=== PATIENT | female | born 1945 | race Caucasian/White ===

== ENCOUNTER 2018-03-18 09:53 | Inpatient (IN) | payer BC ==
[2018-03-15 09:12] VITALS: BMI 31.9
[2018-03-18] MEDS ORDERED: ROPIVACAINE HCL 0.5% 30ML VIAL ONE ×2 (12:17→12:18)
--- NOTE | 2018-03-18 12:40 | OP ---
Operative Note - Note: Operative Date: 03/18/18 Pre-Operative Diagnosis: 1. L4-L5, L5-S1 intervertebral disc disorder with associated lower extremity radiculopathy. 2. L4-L5, L5-S1 spinal stenosis with neurogenic claudication. 3. L4-L5, L5-S1 segmental instability. Operation: 1. L4, L5, S1 laminectomies. 2. L3 laminotomy. 3. L4-L5, L5-S1 discectomy. 4. L4-L5, L5-S1 PLIF. 5. Insertion biomechanical devices L4-L5, L5 -S1. 6. L4-L5, L5-S1 posterior arthrodesis. 7. L4-L5, L5-S1 posterior instrumentation. 8. Bone autograft. 9. Bone allograft. 10. Bone marrow aspiration. 11. Stem cell autograft. 12. Complex wound closure (10cm). Post-Operative Diagnosis: Same as Pre-op Surgeon: Aydin Lara Maintenance Leader: Victor Hugo Lara Anesthesiologist/T RAIL TURNER: Bobby Fonseca Anesthesia: General Specimens Removed: L4-L5, L5-S1 discs Estimated Blood Loss (mls): 550 Blood Volume Replaced (mls): 175 (Keisha Saver) Fluid Volume Replaced (mls): 2,000 (Crystalloid) Operative Report Dictated: Yes
[2018-03-18] MEDS ORDERED: MIDAZOLAM HCL 2 MG/2 ML SINGLE DOSE VIAL ONE ×3 (13:01→13:50)
[2018-03-18] MEDS ORDERED: BENZOIN TINCTURE SWABSTICK TP ONE (13:32)
[2018-03-18] MEDS ORDERED: HEPARIN NA (PORCINE) 5,000 UNITS/ML 1ML VIAL ONE (13:32)
[2018-03-18] MEDS ORDERED: THROMBIN (BOVINE) 5,000 UNIT VIAL TP ONE ×2 (13:32→15:14)
[2018-03-18] MEDS ORDERED: PROPOFOL 20 ML ONE ×12 (13:49→16:43)
[2018-03-18] MEDS ORDERED: fentaNYL CITRATE 250 MCG/5 ML VIAL ONE (13:49)
[2018-03-18] MEDS ORDERED: SUCCINYLCHOLINE CHLORIDE 200 MG/10 ML VIAL ONE (13:51)
[2018-03-18] MEDS ORDERED: ROCURONIUM BROMIDE 50 MG/5 ML VIAL ONE (14:15)
[2018-03-18] MEDS ORDERED: ceFAZolin SODIUM 1 GM VIAL IVPB ONE ×3 (14:31→17:15)
[2018-03-18] MEDS ORDERED: VANCOMYCIN 1,000 MG VIAL (RESTRICTED TO ID ONLY) IVPB ONE (14:40)
[2018-03-18] MEDS ORDERED: TRANEXAMIC ACID 1000 MG/10 ML VIAL ONE (16:50)
[2018-03-18] MEDS ORDERED: ceFAZolin SODIUM 1 GM VIAL ONE ×2 (16:50)
[2018-03-18] MEDS ORDERED: VANCOMYCIN 1,000 MG VIAL (RESTRICTED TO ID ONLY) ONE (16:50)
[2018-03-18] MEDS ORDERED: ONDANSETRON 4 MG/2 ML VIAL IVPUSH PRN ×2 (17:17→19:23)
--- NOTE | 2018-03-18 17:17 | PN ---
Progress Note (short form) - Note Progress Note: 73F s/p L1, L2, L3, L4, L5, S1 laminectomies; L1-S1 posterior arthrodesis; L1- S1 posterior instrumentation POD #0. -Admit to ICU post-op. -Pain control: per anaesthesia team; recommend MACHINE HOOP MAKER HELPER; No NSAID's. -DVT PPx: - Mechanical only: MARCY's, SCD's. -Incentive spirometry q15min. -PT/OT/Rehab, OOB. -WBAT B/L LE. -q4h B/L LE NV checks. -Post-op antibiotics x 2 doses. -NPO until flatus. -f/u AM labs. -f/u drain output. -d/c Gaston catheter when patient ambulating comfortably. -Care per medical hospitalist team. -No bending, lifting more than 5lbs, or twisting x 6 months. -Discharge planning: f/u 03/29/2018 at [facility] [place] office; call for appointment; . -Will follow. Aydin Lara MD (Orthopaedic Surgery).
[2018-03-18] MEDS ORDERED: ALBUTEROL SO4 8 GM HFA INHALER IH PRN (17:30)
[2018-03-18] MEDS ORDERED: LACTATED RINGERS SOLUTION 1,000 ML IV SCH ×2 (17:30→19:30)
[2018-03-18] MEDS ORDERED: MECLIZINE HCL 12.5 MG TABLET PO PRN (17:30)
[2018-03-18] MEDS ORDERED: GLYCOPYRROLATE 0.2 MG/1 ML VIAL ONE ×3 (17:49→17:59)
[2018-03-18] MEDS ORDERED: NEOSTIGMINE METHYLSULFATE 0.5 MG/1 ML - 10 ML MDV ONE (17:49)
[2018-03-18] MEDS ORDERED: METOPROLOL TARTRATE 5 MG/5 ML VIAL ONE (17:49)
[2018-03-18] MEDS ORDERED: ATROPINE SO4 0.4 MG/1 ML VIAL ONE (18:03)
[2018-03-18] MEDS ORDERED: LIDOCAINE HCL/PF 2% SDV 5ML VIAL ONE (18:35)
[2018-03-18] MEDS ORDERED: HYDROmorphone *PCA* 10MG/50ML DISP.SYRIN PCA ONE (19:19)
[2018-03-18] MEDS ORDERED: ACETAMINOPHEN INJECTION 100 ML IVPB ONE (19:19)
[2018-03-18] MEDS ORDERED: ACETAMINOPHEN 1000 MG/100 ML VIAL (NON FORMULARY) IVPB ONE (19:23)
[2018-03-18] MEDS ORDERED: HYDROmorphone *PCA* 10MG/50ML DISP.SYRIN PCA SCH (19:30)
[2018-03-18] MEDS ORDERED: ONDANSETRON 4 MG/2 ML VIAL ONE (20:11)
[2018-03-18] MEDS ORDERED: PROMETHAZINE HCL 25 MG/1 ML VIAL ONE (21:28)
[2018-03-18] MEDS ORDERED: PROMETHAZINE HCL 25 MG/1 ML VIAL IVPUSH PRN (21:37)
[2018-03-18] MEDS: KETOROLAC TROMETHAMINE 30 MG/1 ML VIAL IVPUSH PRN (21:45)
[2018-03-18] MEDS ORDERED: KETOROLAC TROMETHAMINE 30 MG/1 ML VIAL ONE (21:48)
[2018-03-18] MEDS: MONTELUKAST NA 10 MG TABLET PO SCH (22:30)
--- NOTE | 2018-03-18 22:41 | CONSULT ---
Consultation: REQUESTING PROVIDER:Dr. Lara CONSULT REQUEST: We have been asked to medically evaluate this patient for ICU HISTORY OF PRESENT ILLNESS: 73 yo F with L4-L5, L5-S1 intervertebral disc disorder with associated lower extremity radiculopathy ,L4-L5, L5-S1 spinal stenosis with neurogenic claudication and L4-L5, L5-S1 segmental instability. She is POD #0 s/p L1, L2, L3, L4, L5, S1 laminectomies; L1-S1 posterior arthrodesis; L1-S1 posterior instrumentation. Tolerated the procedure well. No complaints. Minimal back pain. Denies CP,COLE, SOB, palpitations, abdominal pain, nausea or vomiting. PMHx: HTN, Vertigo, COPD PSHx: back surgery, CCY, bilateral carpel tunnel sx. Social: remote smoker quit >30 yrs ago, NO ETOH or drugs. Independent and lives with brother. Allergies: Sulfa (severe reaction) REVIEW OF SYSTEMS: CONSTITUTIONAL: Absent: fever, chills, diaphoresis, generalized weakness, malaise, loss of appetite, weight change HEENT: Absent: rhinorrhea, nasal congestion, throat pain, throat swelling, difficulty swallowing, mouth swelling, ear pain, eye pain, visual changes CARDIOVASCULAR: Absent: chest pain, syncope, palpitations, irregular heart rate, lightheadedness , peripheral edema RESPIRATORY: Absent: cough, shortness of breath, dyspnea with exertion, orthopnea, wheezing, stridor, hemoptysis GASTROINTESTINAL: Absent: abdominal pain, abdominal distension, nausea, vomiting, diarrhea, constipation, melena, hematochezia GENITOURINARY: Absent: dysuria, frequency, urgency, hesitancy, hematuria, flank pain, genital pain MUSCULOSKELETAL: back pain Absent: myalgia, arthralgia, joint swelling,, neck pain SKIN: Absent: rash, itching, pallor HEMATOLOGIC/IMMUNOLOGIC: Absent: easy bleeding, easy bruising, lymphadenopathy, frequent infections ENDOCRINE: Absent: unexplained weight gain, unexplained weight loss, heat intolerance, cold intolerance NEUROLOGIC: Absent: headache, focal weakness or paresthesias, dizziness, unsteady gait, seizure, mental status changes, bladder or bowel incontinence PSYCHIATRIC: Absent: anxiety, depression, suicidal or homicidal ideation, hallucinations. PHYSICAL EXAMINATION Vital Signs - 24 hr 03/18/18 03/18/18 03/18/18 11:21 11:22 19:30 Temperature 98.4 F Pulse Rate 93 H 79 Respiratory 20 20 Rate Blood Pressure 141/77 93/73 O2 Sat by Pulse 97 Oximetry (%) 03/18/18 03/18/18 03/18/18 19:45 20:00 20:15 Temperature Pulse Rate 75 76 80 Respiratory 18 13 14 Rate Blood Pressure 117/68 123/61 145/65 O2 Sat by Pulse 100 100 100 Oximetry (%) 03/18/18 03/18/18 03/18/18 20:30 20:45 21:00 Temperature Pulse Rate 75 83 80 Respiratory 10 12 14 Rate Blood Pressure 138/66 139/62 133/58 L O2 Sat by Pulse 100 96 Oximetry (%) 03/18/18 21:15 Temperature Pulse Rate 79 Respiratory 14 Rate Blood Pressure 143/80 O2 Sat by Pulse 100 Oximetry (%) GENERAL: awake and alert, NAD HEAD: NCAT EYES: PERRLA, EOMI, sclera anicteric, conjunctiva clear. No lid lag. EARS, NOSE, THROAT: Moist mucous membranes. NECK: supple without lymphadenopathy, JVD, or masses. LUNGS: CTAB. No wheezes, and no crackles. No accessory muscle use. HEART: RRR, normal S1 and S2 without murmur, rub or gallop. ABDOMEN: Soft, NTND,NABS,no guarding, no rebound, no masses. No hepatomegaly or splenomegaly. MUSCULOSKELETAL:decreased ROM 2/2 post op pain. Lumbar drain in place and patent , draining serosangionous fluid. LOWER EXTREMITIES: 2+ pulses, warm, well-perfused. No calf tenderness. No peripheral edema. NEUROLOGICAL: Cranial nerves II-XII intact. Normal speech. gait not observed. PSYCHIATRIC: Cooperative. Good eye contact. Appropriate mood and affect. Laboratory Results - last 24 hr 03/18/18 03/18/18 10:36 19:30 Blood Type O NEGATIVE O NEGATIVE Antibody Screen Negative Active Medications Generic Name Dose Route Start Last Admin Trade Name Freq PRN Reason Stop Dose Admin Acetaminophen 1,000 mg 03/19/18 18:15 Ofirmev Injection - IVPB 03/20/18 10:01 Q8H-IV FREDDY Albuterol Sulfate 1 puff 03/18/18 17:30 Ventolin Hfa Inhaler - IH PRN FREDDY Cefazolin Sodium/Dextrose 2 gm 03/19/18 01:00 Ancef 2 Gm Premixed Ivpb - IVPB 03/19/18 09:01 Q8H FREDDY Fentanyl 50 mcg 03/18/18 19:23 03/18/18 19:25 Sublimaze Injection - IVPUSH 50 mcg Q5M PRN Administration PAIN-PACU ORDER X 4 DOSES ONLY Fluticasone Propionate 2 spray 03/19/18 10:00 Flonase - NS DAILY FREDDY Hydrochlorothiazide 12.5 mg 03/19/18 10:00 Hctz - PO DAILY FREDDY Hydromorphone HCl 0 mg 03/18/18 19:30 03/18/18 19:45 Dilaudid [employer] - BUS ANALYST 03/25/18 19:23 10 mg BUS ANALYST FREDDY Administration Protocol Lactated Ringer's 1,000 mls @ 125 mls/hr 03/18/18 17:30 Lactated Ringers Solution IV ASDIR FREDDY Lactated Ringer's 1,000 mls @ 75 mls/hr 03/18/18 19:30 03/18/18 19:45 Lactated Ringers Solution IV 0 mls ASDIR FREDDY Administration Losartan Potassium 100 mg 03/19/18 10:00 Losartan Potassium PO DAILY FREDDY Meclizine HCl 12.5 mg 03/18/18 17:30 Antivert - PO PRN FREDDY Montelukast Sodium 10 mg 03/18/18 22:00 Singulair - PO HS FREDDY Non-Formulary Medication 10.5 mg 03/19/18 10:00 Bifidobacterium Infantis [Align] PO DAILY FREDDY Ondansetron HCl 4 mg 03/18/18 17:17 Zofran Injection IVPUSH Q6H PRN NAUSEA AND/OR VOMITING Ondansetron HCl 4 mg 03/18/18 19:23 Zofran Injection IVPUSH Q6H PRN NAUSEA AND/OR VOMITING Pantoprazole Sodium 40 mg 03/19/18 10:00 Protonix - PO DAILY FREDDY Promethazine HCl 12.5 mg 03/18/18 21:37 Phenergan Injection - IVPUSH Q6H PRN NAUSEA-FOR RESCUE AFTER 15 MIN ASSESSMENT/PLAN: 73F s/p L1, L2, L3, L4, L5, S1 laminectomies; L1-S1 posterior arthrodesis; L1- S1 posterior instrumentation POD #0. NEURO: * Dr. Lara orders appreciated. * Pain control: BUS ANALYST; No NSAID's. * PT/OT/Rehab, OOB. * WBAT B/L LE. * q4h B/L LE NV checks. * d/c Gaston catheter when patient ambulating comfortably. * No bending, lifting more than 5lbs, or twisting x 6 months. * Antivert for vertigo. CV: H/O HTN * Will continue Losartan/HCTZ * monitor BP PULM: * H/O COPD * Incentive spirometry q15min. * Supplemental O2 PRN * Maintain SpO2 >90% * BD TX PRN * Continue Singulair. ID: * Post-op antibiotics Cefazolin x 2 doses. GI: * NPO until flatus. * Will advance to sodium controlled diet. * Zofran and Promethazine for nausea PRN * Continue Probiotic. * PPI FEN: * LR @ 75ml/hr * f/u AM labs replete lytes PRN. * NPO until flatus PPx: * DVT-Mechanical only: MARCY's, SCD's. * GI- protonix 40mg daily. Dispo: We will continue to follow the patient in ICU. Thank you for this consultative opportunity. Visit type - Emergency Visit Emergency Visit: Yes ED Registration Date: 03/18/18 Care time: The patient presented to the Emergency Department on the above date and was hospitalized for further evaluation of their emergent condition. - New Patient This patient is new to me today: Yes Date on this admission: 03/18/18 - Critical Care Critical Care patient: Yes Total Critical Care Time (in minutes): 32 Critical Care Statement: The care of this patient involved high complexity decision making to prevent further life threatening deterioration of the patient 's condition and/or to evaluate & treat vital organ system(s) failure or risk of failure.
[2018-03-19] MEDS: ceFAZolin 2 GRAM PREMIX BAG IVPB SCH ×2 (01:07→09:57)
[2018-03-19 06:28] LABS: HEMOGLOBIN 10.3 GM/dL (10.7-15.3); MCH 29.9 pg (25.7-33.7); MCHC 34.4 g/dl (32.0-36.0); MEAN CELL VOLUME 86.8 fl (80-96); PLATELET COUNT 149 K/MM3 (134-434); RBC 3.45 M/mm3 (3.60-5.2); RDW 13.7 % (11.6-15.6)
--- NOTE | 2018-03-19 07:22 | PN ---
Physical Exam: SUBJECTIVE: Patient seen and examined at bedside this morning. She does not endorse acute complaints today. She has not yet passed flatus or bowel movement. Patient endorses that Dilaudid makes her feel nauseas, and is asking for Morphine instead. She denies subjective fevers, chills, shortness of breath , chest pain, palpitations, abdominal pain, nausea, vomiting. OBJECTIVE: Vital Signs Period Temp Pulse Resp BP Sys/Uribe Pulse Ox Last 24 Hr 97.5 F-98.4 F 75-96 6-21 93-145/38-80 96-100 GENERAL: The patient is awake, alert, and fully oriented, in no acute distress. HEAD: Normocephalic, atraumatic EYES: PERRL, extraocular movements intact, sclera anicteric, conjunctiva clear. ENT: Oropharynx clear without exudates, moist mucous membranes. NECK: Supple without lymphadenopathy LUNGS: Breath sounds equal, clear to auscultation bilaterally. No wheezes, no crackles, no accessory muscle use. HEART: Regular rate and rhythm, S1, S2 without murmur, rub or gallop. ABDOMEN: Obese. Soft, nontender, nondistended. Normoactive bowel sounds x4 quadrants, no guarding, no rebound tenderness. No hepatomegaly palpated or percussed. EXTREMITIES: 2+ radial, dorsalis pedis pulses bilaterally. Warm, well-perfused, no edema bilateral lower extremities. NEUROLOGICAL: Cranial nerves II through XII grossly intact. Normal speech. PSYCH: Normal mood, normal affect upon my encounter today SKIN: Warm, dry. Surgical site bandaged clean, dry. Wound drain noted draining sanguinous drainage. Laboratory Results - last 24 hr 03/18/18 03/18/18 03/19/18 10:36 19:30 05:30 WBC 11.0 H RBC 3.45 L Hgb 10.3 L Hct 30.0 L MCV 86.8 MCH 29.9 MCHC 34.4 RDW 13.7 Plt Count 149 MPV 8.0 Blood Type O NEGATIVE O NEGATIVE Antibody Screen Negative Active Medications Generic Name Dose Route Start Last Admin Trade Name Freq PRN Reason Stop Dose Admin Acetaminophen 1,000 mg 03/19/18 18:15 Ofirmev Injection - IVPB 03/20/18 10:01 Q8H-IV FREDDY Albuterol Sulfate 2 puff 03/18/18 17:30 Ventolin Hfa Inhaler - IH Q6H PRN SHORTNESS OF BREATH Cefazolin Sodium/Dextrose 2 gm 03/19/18 01:00 03/19/18 01:07 Ancef 2 Gm Premixed Ivpb - IVPB 03/19/18 09:01 2 gm Q8H FREDDY Administration Fluticasone Propionate 2 spray 03/19/18 10:00 Flonase - NS DAILY [facility] Hydrochlorothiazide 12.5 mg 03/19/18 10:00 Hctz - PO DAILY [facility] Hydromorphone HCl 0 mg 03/18/18 19:30 03/18/18 19:45 Dilaudid Test Carrier - UNDERCOVER OPERATOR 03/25/18 19:23 10 mg UNDERCOVER OPERATOR FREDDY Administration Protocol Lactated Ringer's 1,000 mls @ 75 mls/hr 03/18/18 19:30 03/18/18 19:45 Lactated Ringers Solution IV 300 mls ASDIR FREDDY Administration Ketorolac Tromethamine 30 mg 03/18/18 22:25 03/18/18 21:45 Toradol Injection - IVPUSH 30 mg Q12H PRN Administration PAIN LEVEL 6-10 Lactobacillus Acidophilus 1 tab 03/19/18 10:00 Bacid - PO DAILY [facility] Losartan Potassium 100 mg 03/19/18 10:00 Cozaar - PO DAILY [facility] Meclizine HCl 12.5 mg 03/18/18 17:30 Antivert - PO Q8H PRN VERTIGO Montelukast Sodium 10 mg 03/18/18 22:00 03/18/18 22:30 Singulair - PO Not Given HS [facility] Ondansetron HCl 4 mg 03/18/18 17:17 Zofran Injection IVPUSH Q6H PRN NAUSEA AND/OR VOMITING Ondansetron HCl 4 mg 03/18/18 19:23 Zofran Injection IVPUSH Q6H PRN NAUSEA AND/OR VOMITING Pantoprazole Sodium 40 mg 03/19/18 10:00 Protonix - PO DAILY [facility] ASSESSMENT/PLAN: Patient is a 73 year old female with history of hypertension, COPD, vertigo admitted to ICU s/p L1, L2, L3, L4, L5, S1 laminectomies; L1-S1 posterior arthrodesis; L1-S1 posterior instrumentation. Cardiovascular Hypertension -Hydrochlorothiazide 12.5mg PO daily -Losartan 100mg PO daily -Monitor vital signs closely Pulmonary COPD -not in acute exacerbation -Singulair 10mg PO HS -Incentive spirometer Q15 minutes -Maintain oxygen saturation greater than 90% Musculoskeletal -POD #1 s/p L1, L2, L3, L4, L5, S1 laminectomies; L1-S1 posterior arthrodesis; L1-S1 posterior instrumentation. -Neuro checks Q4 hours -Morphine 4mg IV Q4H PRN for pain control. Patient states that Dilaudid makes her nauseas. -Ofirmev 1000mg IV Q8H PRN -Flexeril 10mg PO -one time dose -Follow drain, diaz catheter output. Will D/C diaz catheter once patient ambulatory -Physical therapy evaluation Gastrointestinal -NPO until passing flatus -IV Lactated Ringer's at 75mL/ hour -Zofran 4mg IV Q6H PRN for nausea -Colace 100mg PO -Prophylaxis with Protonix 40mg PO daily ID -Patient recieved Cefazolin 2 grams IV x2 doses post- operatively -Bacid 1 tablet daily FEN -Lactated Ringer's at 75mL/ hour -Within normal limits. Follow CMP, replete as necessary -NPO until passing flatus Prophylaxis -No chemical anticoagulation, per Dr. Lara -SCDs, TEDs bilateral lower extremities -Protonix 40mg PO daily Disposition -Transfer to medical- surgical floor per surgery. Visit type - Emergency Visit Emergency Visit: Yes ED Registration Date: 03/18/18 Care time: The patient presented to the Emergency Department on the above date and was hospitalized for further evaluation of their emergent condition. - New Patient This patient is new to me today: Yes Date on this admission: 03/19/18 - Critical Care Critical Care patient: Yes Total Critical Care Time (in minutes): 35 Critical Care Statement: The care of this patient involved high complexity decision making to prevent further life threatening deterioration of the patient 's condition and/or to evaluate & treat vital organ system(s) failure or risk of failure. - Discharge Referral Referred to [facility] No
[2018-03-19] MEDS: morphine SULFATE 4 MG/ML VIAL IVPUSH PRN ×2 (08:51→17:06)
[2018-03-19 09:02] LABS: ANION GAP 6 MMOL/L (8-16); CALCIUM 8.1 mg/dL (8.5-10.1); CHLORIDE 106 mmol/L (98-107); CO2 30 mmol/L (21-32); CREATININE 0.5 mg/dL (0.55-1.3); GLUCOSE,RANDOM 115 mg/dL (74-106); POTASSIUM 4.1 mmol/L (3.5-5.1); SODIUM 143 mmol/L (136-145)
[2018-03-19] MEDS: HYDROCHLOROTHIAZIDE 12.5 MG CAPSULE (FP) PO SCH (09:53)
[2018-03-19] MEDS: LOSARTAN POTASSIUM 50 MG TABLET (FP) PO SCH (09:53)
[2018-03-19] MEDS: PANTOPRAZOLE 40 MG TABLET (FP) PO SCH (09:53)
[2018-03-19] MEDS: LACTOBACILLUS ACIDOPHILUS 1 TABLET PO SCH (09:55)
[2018-03-19] MEDS ORDERED: PATIENT'S OWN MEDICATION (NON-FORMULARY) (Losartan/Hydrochlorothiazide [Losartan-Hctz 100- PO SCH (10:00)
--- NOTE | 2018-03-19 10:42 | OP ---
DATE OF OPERATION: DATE OF DICTATION: 03/18/2018 SURGEON: Aydin Lara MD MEDICAL RECRUITER: Victor Hugo Lara MD PREOPERATIVE DIAGNOSES: 1. Multilevel spinal stenosis, L2 to S1. 2. Segmental instability, lumbar spine, with retrolisthesis in the vertebral body of L4, spondylolisthesis, L4-5. 3. Flat back and lumbar kyphosis. POSTOPERATIVE DIAGNOSES: 1. Multilevel spinal stenosis, L2 to S1. 2. Segmental instability, lumbar spine, with retrolisthesis in the vertebral body of L4, spondylolisthesis, L4-5. 3. Flat back and lumbar kyphosis. OPERATION PERFORMED: 1. Multilevel laminectomy, L2 to S1. 2. Stanley-Barfield osteotomy, L2-3 and 3-4. 3. Neurolysis, left L2, 3, 4, 5, S1 and right neurolysis L2, 3, 4, 5, S1. 4. Pedicle screw instrumentation, L1 to S1. 5. Posterolateral arthrodesis, L1 to S1. 6. Use of bone marrow aspirate concentrate from left posterior ilium. 7. Use of biplanar fluoroscopy, neural monitoring. ANESTHESIA: General. ANTIBIOTICS GIVEN: Kefzol, 2 g, 1 g of vancomycin. Kefzol 1 g given at the time of seating of the instrumentation. Tranexamic acid utilized. BLOOD LOSS: 600 mL; 250 mL cell saver given back. OPERATION IN DETAIL: This patient correctly identified, brought to the operating room. The lumbar spine was prepped, draped in the routine manner with Betadine scrub solution, wiped off with alcohol, DuraPrep applied. The patient was placed on a Dieudonne table. All pressure points were prepped and padded including the eyes. The operation was performed at 10 degrees head up. Timeout was called. A window drape was utilized after cleansing the skin with Betadine scrub solution, wiped off with alcohol and DuraPrep being applied. Midline incision utilized. This included the old incision over the lumbar spine out to the tips of the spinous processes of T12 to S1. The dissection was taken subperiosteally down the spinous processes of the laminae of the facet joints out to the tips of the transverse processes, left- and right-hand side, exposing the entire lumbar spine from L1 to S1 accordingly. Once this had been performed verification of levels with lateral fluoroscopic x-rays was performed. The disks of L3-4, 4-5, 5-1 were completely collapsed. The laminectomy was an extremely difficult laminectomy because of the severe stenosis and lateral anterolisthesis and kink in the vertebral canal. This process enabled complete freeing the cord. We used Leksell rongeurs but predominantly Kerrison up-cuts Nos. 3, 4, 5 and S1 and using osteotomes to incise the vertebral canal along the pars anterior articularis and the inferior facets right up to L1 both left- and right-hand side, imploding the bone inwards and then cutting out the superior facets enabled an undercutting superior facetectomy both left- and right-hand side. Once this had been performed each nerve root was followed in the foramen. Each foramen was opened up appropriately and each nerve root was neurolysed freeing them from the covering surrounding fibers encasing tissues at every level. This was tedious, but all went well with no neural monitoring abnormalities and marked improvement in neural monitoring numbers once the decompression/neurolysis had been performed revealing excellent return of nerve function accordingly. Once this had been completed a complete Stanley-Barfield osteotomy, L3-4 and 4-5, were performed. This enabled methodist of the lumbar lordosis. Pedicle screws were utilized from L1 to S1. The wounds were thoroughly lavaged. The rods were contoured to the actual tulips on the screws, fixed solidly into position with the appropriate torque device for each screw and 1 crosslink utilized. The wounds were thoroughly lavaged throughout. Bone grafting was a mixture of autologous bone which was bone harvested from the patient posteriorly. Also, likewise the left and right candelario were entered to harvest 120 mL of marrow. This was spun down for the CD34 cells. Three demineralized strips were utilized, left- and right-hand side, and these were soaked in the CD34 stem cells that had been spun down and prepared from the marrow aspiration. These were packed into the intertransverse plane. The autologous and expanded allograft chips were packed into the area, thus completing the posterolateral arthrodesis from L1 to S1. Also, we noted the muscle was gently lifted off the intertransverse plane and exposing each transverse process appropriately for the bone grafting purposes. The wounds were thoroughly lavaged. A 1/8-inch Hemovac drain was inserted and the closure was as follows: Muscle 1 Vicryl, fascia 1 Vicryl, subcutaneous 1 and 2-0 Vicryl, skin cheko. Drains: A 1/8-inch x1. 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 All went well. No complications. Denominational of flat back achieved. MD DEXTER Shafer/[id number]
[2018-03-19] MEDS: ACETAMINOPHEN 1000 MG/100 ML VIAL (NON FORMULARY) IVPB SCH ×2 (12:20→20:48)
--- NOTE | 2018-03-19 12:30 | PN ---
Physical Exam: SUBJECTIVE: Patient seen and examined at bedside. Pt is a73 y/o F w/PMH of HTN, vertigo, COPD, LE radiculopathy secondary to L4-S1 spinal stenosis. She is POD # 1 s/p L4-S1 spinal stenosis and arthrodesis. She was not able to tolerate dilaudid due to nausea and is now on morphine which is giving her moderate pain relief. She has not passed flatus yet and has not been out of bed yet. She denies CP, SOB, vomiting, nausea since being on morphine, COLE, abd pain. OBJECTIVE: Vital Signs Temperature 98.5 F 03/19/18 10:02 Pulse Rate 90 03/19/18 10:02 Respiratory Rate 25 H 03/19/18 10:02 Blood Pressure 108/53 L 03/19/18 10:02 O2 Sat by Pulse Oximetry (%) 100 03/19/18 10:00 GENERAL: The patient is awake, alert, and fully oriented, in no acute distress. EYES: extraocular movements intact, sclera anicteric, conjunctiva clear ENT: Ears normal, nares patent. NECK: Trachea midline LUNGS: Breath sounds equal, clear to auscultation bilaterally anteriorly, no wheezes, no crackles, no accessory muscle use. HEART: Regular rate and rhythm, S1, S2 ABDOMEN: Soft, nontender, hypoactive BS EXTREMITIES: warm, well-perfused, no edema. NEUROLOGICAL: Cranial nerves II through XII grossly intact. Normal speech PSYCH: Normal mood, normal affect. SKIN: Warm, dry Laboratory Results - last 24 hr 03/18/18 03/19/18 03/19/18 19:30 05:30 05:30 WBC 11.0 H RBC 3.45 L Hgb 10.3 L Hct 30.0 L MCV 86.8 MCH 29.9 MCHC 34.4 RDW 13.7 Plt Count 149 MPV 8.0 Sodium 143 Potassium 4.1 Chloride 106 Carbon Dioxide 30 Anion Gap 6 L BUN Creatinine 0.5 L Creat Clearance w eGFR > 60 Random Glucose 115 H Calcium 8.1 L Blood Type O NEGATIVE Active Medications Generic Name Dose Route Start Last Admin Trade Name Freq PRN Reason Stop Dose Admin Acetaminophen 1,000 mg 03/19/18 18:15 03/19/18 12:20 Ofirmev Injection - IVPB 03/20/18 10:01 1,000 mg Q8H-IV FREDDY Administration Albuterol Sulfate 2 puff 03/18/18 17:30 Ventolin Hfa Inhaler - IH Q6H PRN SHORTNESS OF BREATH Fluticasone Propionate 2 spray 03/19/18 10:00 Flonase - NS DAILY [facility] Hydrochlorothiazide 12.5 mg 03/19/18 10:00 03/19/18 09:53 Hctz - PO 12.5 mg DAILY [facility] Administration Lactated Ringer's 1,000 mls @ 75 mls/hr 03/18/18 19:30 03/18/18 19:45 Lactated Ringers Solution IV 300 mls ASDIR FREDDY Administration Ketorolac Tromethamine 30 mg 03/18/18 22:25 03/18/18 21:45 Toradol Injection - IVPUSH 30 mg Q12H PRN Administration PAIN LEVEL 6-10 Lactobacillus Acidophilus 1 tab 03/19/18 10:00 03/19/18 09:55 Bacid - PO 1 tab DAILY [facility] Administration Losartan Potassium 100 mg 03/19/18 10:00 03/19/18 09:53 Cozaar - PO 100 mg DAILY [facility] Administration Meclizine HCl 12.5 mg 03/18/18 17:30 Antivert - PO Q8H PRN VERTIGO Montelukast Sodium 10 mg 03/18/18 22:00 03/18/18 22:30 Singulair - PO Not Given HS [facility] Morphine Sulfate 4 mg 03/19/18 07:25 03/19/18 08:51 Morphine Sulfate IVPUSH 4 mg Q4H PRN Administration PAIN LEVEL 1-5 Ondansetron HCl 4 mg 03/18/18 17:17 03/19/18 09:54 Zofran Injection IVPUSH 4 mg Q6H PRN Administration NAUSEA AND/OR VOMITING Ondansetron HCl 4 mg 03/18/18 19:23 Zofran Injection IVPUSH Q6H PRN NAUSEA AND/OR VOMITING Pantoprazole Sodium 40 mg 03/19/18 10:00 03/19/18 09:53 Protonix - PO 40 mg DAILY [facility] Administration ASSESSMENT/PLAN: 73 y/o F w/PMH of HTN, vertigo, COPD, LE radiculopathy secondary to L4-S1 spinal stenosis. She is POD #1 s/p L4-S1 spinal stenosis and arthrodesis. -L4-S1 spinal stenosis s/p L4-S1 Laminectomies -Pain control with morphine and ofirmev -incentive spirometry q15min -PT/OT -Zofran PRN for nausea -npo until flatus -d/c diaz once ambulatory -LR@ 75 ml/hr -HTN -c/w hctz 12.5mg qd, losartan 100mg qd -COPD -c/w alb inhaler, singulair -GI ppx -pantoprazole 40 mg po qd -DVT ppx -SCDs -FEN -LR @ 75 ml/hr -Monitor electrolytes -NPO until flatus -Dispo: -continue monitoring in ICU. Visit type - Emergency Visit Emergency Visit: No - New Patient This patient is new to me today: Yes Date on this admission: 03/19/18 - Critical Care Critical Care patient: Yes Total Critical Care Time (in minutes): 35 Critical Care Statement: The care of this patient involved high complexity decision making to prevent further life threatening deterioration of the patient 's condition and/or to evaluate & treat vital organ system(s) failure or risk of failure.
[2018-03-19 12:44] LABS: BLOOD UREA NITROGEN 19 mg/dL (7-18)
[2018-03-19] MEDS ORDERED: DOCUSATE SODIUM 100 MG CAPSULE (FP) PO ONE ×2 (12:48→17:15)
[2018-03-19] MEDS ORDERED: CYCLOBENZAPRINE HCL 10 MG TABLET (FP) PO ONE ×2 (12:48→17:15)
--- NOTE | 2018-03-19 14:41 | PN ---
Progress Note (short form) - Note Progress Note: Anesthesia POD#1 S/P PLIF under GA and NITRILES LAB TECHNICIAN VSS but feeling dizzy and nauseous, oral diet is not started yet. A/P Discontinue the NITRILES LAB TECHNICIAN and intermittent IV and oral pain meds can be given. Padmini Avila MD.
--- NOTE | 2018-03-19 14:55 | PN ---
Teaching Attending Note Name of Resident: Babar Cha ATTENDING PHYSICIAN STATEMENT I saw and evaluated the patient. I reviewed the resident's note and discussed the case with the resident. I agree with the resident's findings and plan as documented. SUBJECTIVE: Patient seen and examined in the ICU. Awake and alert. Some discomfort at the surgical site, but better than yesterday. No CP or SOB. Intake & Output 03/16/18 03/17/18 03/18/18 03/19/18 23:59 23:59 23:59 23:59 Intake Total 4150 1239 Output Total 1150 300 Balance 3000 939 Last Vital Signs Temp Pulse Resp BP Pulse Ox 99 F 88 20 109/51 L 100 03/19/18 13:25 03/19/18 13:30 03/19/18 13:30 03/19/18 13:30 03/19/18 10:00 Active Medications Acetaminophen (Ofirmev Injection -) 1,000 mg IVPB Q8H-IV [facility]EDDY Stop: 03/20/18 10:01 Last Admin: 03/19/18 12:20 Dose: 1,000 mg Albuterol Sulfate (Ventolin Hfa Inhaler -) 2 puff IH Q6H PRN PRN Reason: SHORTNESS OF BREATH Fluticasone Propionate (Flonase -) 2 spray NS DAILY [facility] Hydrochlorothiazide (Hctz -) 12.5 mg PO DAILY [facility] Last Admin: 03/19/18 09:53 Dose: 12.5 mg Lactated Ringer's (Lactated Ringers Solution) 1,000 mls @ 75 mls/hr IV ASDIR [facility] Last Admin: 03/18/18 19:45 Dose: 300 mls Ketorolac Tromethamine (Toradol Injection -) 30 mg IVPUSH Q12H PRN PRN Reason: PAIN LEVEL 6-10 Last Admin: 03/18/18 21:45 Dose: 30 mg Lactobacillus Acidophilus (Bacid -) 1 tab PO DAILY [facility] Last Admin: 03/19/18 09:55 Dose: 1 tab Losartan Potassium (Cozaar -) 100 mg PO DAILY [facility] Last Admin: 03/19/18 09:53 Dose: 100 mg Meclizine HCl (Antivert -) 12.5 mg PO Q8H PRN PRN Reason: VERTIGO Montelukast Sodium (Singulair -) 10 mg PO HS [facility] Last Admin: 03/18/18 22:30 Dose: Not Given Morphine Sulfate (Morphine Sulfate) 4 mg IVPUSH Q4H PRN PRN Reason: PAIN LEVEL 1-5 Last Admin: 03/19/18 08:51 Dose: 4 mg Ondansetron HCl (Zofran Injection) 4 mg IVPUSH Q6H PRN PRN Reason: NAUSEA AND/OR VOMITING Last Admin: 03/19/18 09:54 Dose: 4 mg Ondansetron HCl (Zofran Injection) 4 mg IVPUSH Q6H PRN PRN Reason: NAUSEA AND/OR VOMITING Pantoprazole Sodium (Protonix -) 40 mg PO DAILY [facility] Last Admin: 03/19/18 09:53 Dose: 40 mg 5, L5-S1 intervertebral disc disorder with associated lower extremity radiculopathy ,L4-L5, L5-S1 spinal stenosis with neurogenic claudication and L4- L5, L5-S1 segmental instability. She is POD #0 s/p L1, L2, L3, L4, L5, S1 laminectomies; L1-S1 posterior arthrodesis; L1-S1 posterior instrumentation. Tolerated the procedure well. No complaints. Minimal back pain. Denies CP,COLE, SOB, palpitations, abdominal pain, nausea or vomiting. GENERAL: awake and alert, NAD HEAD: NCAT EYES: PERRLA, EOMI, sclera anicteric, conjunctiva clear. No lid lag. EARS, NOSE, THROAT: Moist mucous membranes. NECK: supple without lymphadenopathy, JVD, or masses. LUNGS: CTAB. No wheezes, and no crackles. No accessory muscle use. HEART: RRR, normal S1 and S2 without murmur, rub or gallop. ABDOMEN: Soft, NTND,NABS,no guarding, no rebound, no masses. No hepatomegaly or splenomegaly. MUSCULOSKELETAL:decreased ROM 2/2 post op pain. Lumbar drain in place and patent , draining serosangionous fluid. LOWER EXTREMITIES: 2+ pulses, warm, well-perfused. No calf tenderness. No peripheral edema. NEUROLOGICAL: Non-focal PSYCHIATRIC: Cooperative. Good eye contact. Appropriate mood and affect. Laboratory Results - last 24 hr 03/18/18 03/19/18 03/19/18 19:30 05:30 05:30 WBC 11.0 H RBC 3.45 L Hgb 10.3 L Hct 30.0 L MCV 86.8 MCH 29.9 MCHC 34.4 RDW 13.7 Plt Count 149 MPV 8.0 Sodium 143 Potassium 4.1 Chloride 106 Carbon Dioxide 30 Anion Gap 6 L BUN 19 H Creatinine 0.5 L Creat Clearance w eGFR > 60 Random Glucose 115 H Calcium 8.1 L Blood Type O NEGATIVE ASSESSMENT/PLAN: POD #1: L1, L2, L3, L4, L5, S1 laminectomies; L1-S1 posterior arthrodesis; L1- S1 posterior instrumentation HTN COPD Pain control O2 as needed VTE prophylaxis PT/OT Neuro checks Q4h Continue home meds PO as tolerated BD TX PRN Carrol Gonzales
--- NOTE | 2018-03-19 15:14 | PN ---
Teaching Attending Note Name of Resident: Robby Lackey ATTENDING PHYSICIAN STATEMENT I saw and evaluated the patient. I reviewed the resident's note and discussed the case with the resident. I agree with the resident's findings and plan as documented. SUBJECTIVE: Patient reports pain is tolerable with morphine. She had nausea with Dilaudid but denies nausea now. She is not passing flatus. OBJECTIVE: Vital Signs Period Temp Pulse Resp BP Sys/Uribe Pulse Ox Last 24 Hr 97.5 F-99 F 75-96 6-25 93-145/38-80 96-100 HEART: S1S2, RRR LUNGS: Clear ABDOMEN: Obese, soft, non-tender, non-distended, hypoactive BS EXTREMITIES: No edema Laboratory Results - last 24 hr 03/18/18 03/19/18 03/19/18 19:30 05:30 05:30 WBC 11.0 H RBC 3.45 L Hgb 10.3 L Hct 30.0 L MCV 86.8 MCH 29.9 MCHC 34.4 RDW 13.7 Plt Count 149 MPV 8.0 Sodium 143 Potassium 4.1 Chloride 106 Carbon Dioxide 30 Anion Gap 6 L BUN 19 H Creatinine 0.5 L Creat Clearance w eGFR > 60 Random Glucose 115 H Calcium 8.1 L Blood Type O NEGATIVE Current Medications Generic Name Dose Route Start Last Admin Trade Name Freq PRN Reason Stop Dose Admin Acetaminophen 1,000 mg 03/19/18 18:15 03/19/18 12:20 Ofirmev Injection - IVPB 03/20/18 10:01 1,000 mg Q8H-IV FREDDY Administration Albuterol Sulfate 2 puff 03/18/18 17:30 Ventolin Hfa Inhaler - IH Q6H PRN SHORTNESS OF BREATH Fluticasone Propionate 2 spray 03/19/18 10:00 Flonase - NS DAILY [facility] Hydrochlorothiazide 12.5 mg 03/19/18 10:00 03/19/18 09:53 Hctz - PO 12.5 mg DAILY [facility] Administration Lactated Ringer's 1,000 mls @ 75 mls/hr 03/18/18 19:30 03/18/18 19:45 Lactated Ringers Solution IV 300 mls ASDIR [facility] Administration Ketorolac Tromethamine 30 mg 03/18/18 22:25 03/18/18 21:45 Toradol Injection - IVPUSH 30 mg Q12H PRN Administration PAIN LEVEL 6-10 Lactobacillus Acidophilus 1 tab 03/19/18 10:00 03/19/18 09:55 Bacid - PO 1 tab DAILY [facility] Administration Losartan Potassium 100 mg 03/19/18 10:00 03/19/18 09:53 Cozaar - PO 100 mg DAILY [facility] Administration Meclizine HCl 12.5 mg 03/18/18 17:30 Antivert - PO Q8H PRN VERTIGO Montelukast Sodium 10 mg 03/18/18 22:00 03/18/18 22:30 Singulair - PO Not Given HS [facility]EDDY Morphine Sulfate 4 mg 03/19/18 07:25 03/19/18 08:51 Morphine Sulfate IVPUSH 4 mg Q4H PRN Administration PAIN LEVEL 1-5 Ondansetron HCl 4 mg 03/18/18 17:17 03/19/18 09:54 Zofran Injection IVPUSH 4 mg Q6H PRN Administration NAUSEA AND/OR VOMITING Ondansetron HCl 4 mg 03/18/18 19:23 Zofran Injection IVPUSH Q6H PRN NAUSEA AND/OR VOMITING Pantoprazole Sodium 40 mg 03/19/18 10:00 03/19/18 09:53 Protonix - PO 40 mg DAILY [facility] Administration ASSESSMENT AND PLAN: This is a 73 year old woman with a history of HTN, vertigo, COPD, lumbar disc disease with radiculopathy, lumbar spinal stenosis with neurogenic claudication who was admitted for lumbar spine surgery. 1. Lumbar disc disease with radiculopathy, lumbar spinal stenosis with neurogenic claudication - s/p L4, L5, S1 laminectomies; L3 laminotomy; L4-L5, L5-S1 discectomy; L4- L5, L5-S1 PLIF; insertion biomechanical devices L4-L5, L5-S1; L4-L5, L5-S1 posterior arthrodesis; L4-L5, L5-S1 posterior instrumentation; bone autograft; bone allograft; bone marrow aspiration; stem cell autograft; complex wound closure (10cm) on 03/18 - Pain control - Physical therapy - Maintain NPO until flatus - Maintain Gaston until ambulatory - Will likely need short term rehab at discharge 2. HTN - Continue Cozaar, HCTZ 3. COPD - Stable - Continue Singulair, albuterol as needed
[2018-03-19] MEDS: MONTELUKAST NA 10 MG TABLET PO SCH (21:23)
[2018-03-20] MEDS: ACETAMINOPHEN 1000 MG/100 ML VIAL (NON FORMULARY) IVPB SCH ×2 (02:14→11:01)
[2018-03-20 06:13] LABS: HEMATOCRIT 29.4 % (32.4-45.2); HEMOGLOBIN 10.3 GM/dL (10.7-15.3); MCH 30.4 pg (25.7-33.7); MCHC 35.1 g/dl (32.0-36.0); MEAN CELL VOLUME 86.6 fl (80-96); MEAN PLT VOLUME 8.1 fl (7.5-11.1); PLATELET COUNT 149 K/MM3 (134-434); RDW 13.7 % (11.6-15.6); WHITE BLOOD COUNT 10.2 K/mm3 (4.0-10.0)
[2018-03-20] MEDS: morphine SULFATE 4 MG/ML VIAL IVPUSH PRN ×2 (06:30→20:37)
--- NOTE | 2018-03-20 08:24 | PN ---
Physical Exam: SUBJECTIVE: Patient seen and examined at bedside this morning. She admits pain is well controlled with Morphine. Patient has not passed flatus or bowel movements overnight. She denies subjective fevers, chills, shortness of breath, chest pain, palpitations, abdominal pain, nausea, vomiting. OBJECTIVE: Vital Signs Period Temp Pulse Resp BP Sys/Uribe Pulse Ox Last 24 Hr 98.2 F-99 F 82-100 18-25 108-127/43-60 98-100 GENERAL: The patient is awake, alert, and fully oriented, in no acute distress. HEAD: Normocephalic, atraumatic EYES: PERRL, extraocular movements intact, sclera anicteric, conjunctiva clear. ENT: Oropharynx clear without exudates, moist mucous membranes. NECK: Supple without lymphadenopathy LUNGS: Breath sounds equal, clear to auscultation bilaterally. No wheezes, no crackles, no accessory muscle use. HEART: Regular rate and rhythm, S1, S2 without murmur, rub or gallop. ABDOMEN: Obese. Soft, nontender, nondistended. Normoactive bowel sounds x4 quadrants, no guarding, no rebound tenderness. No hepatomegaly palpated or percussed. EXTREMITIES: 2+ radial, dorsalis pedis pulses bilaterally. Warm, well-perfused, no edema bilateral lower extremities. NEUROLOGICAL: Cranial nerves II through XII grossly intact. Normal speech. Strength 5/5 bilateral upper and lower extremities. Sensation intact bilaterally. PSYCH: Normal mood, normal affect upon my encounter today SKIN: Warm, dry. Surgical site bandaged clean, dry. Wound drain noted draining sanguinous drainage. Laboratory Results - last 24 hr 03/19/18 03/20/18 05:30 05:30 WBC 10.2 H RBC 3.40 L Hgb 10.3 L Hct 29.4 L MCV 86.6 MCH 30.4 MCHC 35.1 RDW 13.7 Plt Count 149 MPV 8.1 Sodium 143 Potassium 4.1 Chloride 106 Carbon Dioxide 30 Anion Gap 6 L BUN 19 H Creatinine 0.5 L Creat Clearance w eGFR > 60 Random Glucose 115 H Calcium 8.1 L Active Medications Generic Name Dose Route Start Last Admin Trade Name Freq PRN Reason Stop Dose Admin Acetaminophen 1,000 mg 03/19/18 18:15 03/20/18 02:14 Ofirmev Injection - IVPB 03/20/18 10:01 1,000 mg Q8H-IV FREDDY Administration Albuterol Sulfate 2 puff 03/18/18 17:30 Ventolin Hfa Inhaler - IH Q6H PRN SHORTNESS OF BREATH Fluticasone Propionate 2 spray 03/19/18 10:00 Flonase - NS DAILY [facility] Hydrochlorothiazide 12.5 mg 03/19/18 10:00 03/19/18 09:53 Hctz - PO 12.5 mg DAILY [facility] Administration Lactated Ringer's 1,000 mls @ 75 mls/hr 03/18/18 19:30 03/18/18 19:45 Lactated Ringers Solution IV 300 mls ASDIR [facility] Administration Ketorolac Tromethamine 30 mg 03/18/18 22:25 03/18/18 21:45 Toradol Injection - IVPUSH 30 mg Q12H PRN Administration PAIN LEVEL 6-10 Lactobacillus Acidophilus 1 tab 03/19/18 10:00 03/19/18 09:55 Bacid - PO 1 tab DAILY [facility] Administration Losartan Potassium 100 mg 03/19/18 10:00 03/19/18 09:53 Cozaar - PO 100 mg DAILY [facility] Administration Meclizine HCl 12.5 mg 03/18/18 17:30 Antivert - PO Q8H PRN VERTIGO Montelukast Sodium 10 mg 03/18/18 22:00 03/19/18 21:23 Singulair - PO Not Given HS [facility]EDDY Morphine Sulfate 4 mg 03/19/18 07:25 03/20/18 06:30 Morphine Sulfate IVPUSH 4 mg Q4H PRN Administration PAIN LEVEL 1-5 Ondansetron HCl 4 mg 03/18/18 17:17 03/19/18 09:54 Zofran Injection IVPUSH 4 mg Q6H PRN Administration NAUSEA AND/OR VOMITING Ondansetron HCl 4 mg 03/18/18 19:23 Zofran Injection IVPUSH Q6H PRN NAUSEA AND/OR VOMITING Pantoprazole Sodium 40 mg 03/19/18 10:00 03/19/18 09:53 Protonix - PO 40 mg DAILY [facility] Administration ASSESSMENT/PLAN: Patient is a 73 year old female with history of hypertension, COPD, vertigo admitted to ICU s/p L1, L2, L3, L4, L5, S1 laminectomies; L1-S1 posterior arthrodesis; L1-S1 posterior instrumentation. Cardiovascular Hypertension -Hydrochlorothiazide 12.5mg PO daily -Losartan 100mg PO daily -Monitor vital signs closely Pulmonary COPD -not in acute exacerbation -Singulair 10mg PO HS -Incentive spirometer Q15 minutes -Maintain oxygen saturation greater than 90% Musculoskeletal -POD #2 s/p L1, L2, L3, L4, L5, S1 laminectomies; L1-S1 posterior arthrodesis; L1-S1 posterior instrumentation. -Neuro checks Q4 hours -Morphine 4mg IV Q4H PRN for pain control. Patient states that Dilaudid makes her nauseas. -Ofirmev 1000mg IV Q8H PRN -Follow drain, diaz catheter output. Will D/C diaz catheter once patient ambulatory -Physical therapy evaluation Gastrointestinal -NPO until passing flatus -IV Lactated Ringer's at 75mL/ hour -Zofran 4mg IV Q6H PRN for nausea -Colace 100mg PO -Prophylaxis with Protonix 40mg PO daily Hematology -Hb 10.3, Hct 29.4 -stable. No acute signs of bleeding. -Follow CBC Neurology BPV -Meclizine 12.5mg PO Q8H PRN for dizziness ID -Patient recieved Cefazolin 2 grams IV x2 doses post- operatively -Bacid 1 tablet daily FEN -Lactated Ringer's at 75mL/ hour -Within normal limits. Replete as necessary -NPO until passing flatus Prophylaxis -No chemical anticoagulation, per Dr. Lara -SCDs, TEDs bilateral lower extremities -Protonix 40mg PO daily Disposition -Transfer to medical- surgical floor per surgery. Visit type - Emergency Visit Emergency Visit: Yes ED Registration Date: 03/18/18 Care time: The patient presented to the Emergency Department on the above date and was hospitalized for further evaluation of their emergent condition. - New Patient This patient is new to me today: No - Critical Care Critical Care patient: Yes Total Critical Care Time (in minutes): 35 Critical Care Statement: The care of this patient involved high complexity decision making to prevent further life threatening deterioration of the patient 's condition and/or to evaluate & treat vital organ system(s) failure or risk of failure. - Discharge Referral Referred to [facility] Med P.C.: No
[2018-03-20] MEDS: LACTOBACILLUS ACIDOPHILUS 1 TABLET PO SCH (10:00)
--- NOTE | 2018-03-20 10:25 | PN ---
Teaching Attending Note Name of Resident: Babar Cha ATTENDING PHYSICIAN STATEMENT I saw and evaluated the patient. I reviewed the resident's note and discussed the case with the resident. I agree with the resident's findings and plan as documented. SUBJECTIVE: Pt seen and examined in the ICU. Pain better controlled on tylenol and morphine. Nauseous with dilaudid. No flatus yet. OBJECTIVE: Vital Signs Period Temp Pulse Resp BP Sys/Uribe Pulse Ox Last 24 Hr 98.2 F-98.8 F 82-105 18-20 91-127/43-77 98-98 Intake & Output 03/17/18 03/18/18 03/19/18 03/20/18 23:59 23:59 23:59 23:59 Intake Total 4150 2714 Output Total 1150 1250 2260 Balance 3000 1464 -2260 Weight 84.368 kg Gen: NAD at rest Heat: RRR Lung: decreased breath sounds at the bases Abd: soft, nontender Ext: no edema Drain with minimal drainage CBC, BMP 03/20/18 05:30 03/19/18 05:30 Active Medications Albuterol Sulfate (Ventolin Hfa Inhaler -) 2 puff IH Q6H PRN PRN Reason: SHORTNESS OF BREATH Docusate Sodium (Colace -) 100 mg PO DAILY [facility] Last Admin: 03/20/18 17:39 Dose: 100 mg Fluticasone Propionate (Flonase -) 2 spray NS DAILY [facility] Hydrochlorothiazide (Hctz -) 12.5 mg PO DAILY [facility] Lactated Ringer's (Lactated Ringers Solution) 1,000 mls @ 75 mls/hr IV ASDIR [facility] Lactobacillus Acidophilus (Bacid -) 1 tab PO DAILY [facility] Losartan Potassium (Cozaar -) 100 mg PO DAILY [facility] Meclizine HCl (Antivert -) 12.5 mg PO Q8H PRN PRN Reason: VERTIGO Montelukast Sodium (Singulair -) 10 mg PO HS [facility] Morphine Sulfate (Morphine Sulfate) 4 mg IVPUSH Q4H PRN PRN Reason: PAIN LEVEL 1-5 Ondansetron HCl (Zofran Injection) 4 mg IVPUSH Q6H PRN PRN Reason: NAUSEA AND/OR VOMITING Pantoprazole Sodium (Protonix -) 40 mg PO DAILY [facility] Polyethylene Glycol (Miralax (For Daily Use) -) 17 gm PO DAILY [facility] Last Admin: 03/20/18 17:39 Dose: 17 gm ASSESSMENT AND PLAN: Lumbar Spinal Stenosis with Radiculopathy and Neurogenic Claudication HTN COPD - pain control - incentive spirometry - bowel regimen - antiemetics - monitor drain output - PO when flatus - d/c diaz when OOB - rehab/PT - DVT prophylaxis
[2018-03-20] MEDS: PANTOPRAZOLE 40 MG TABLET (FP) PO SCH (10:30)
[2018-03-20] MEDS: LOSARTAN POTASSIUM 50 MG TABLET (FP) PO SCH (11:30)
[2018-03-20] MEDS: HYDROCHLOROTHIAZIDE 12.5 MG CAPSULE (FP) PO SCH (11:30)
--- NOTE | 2018-03-20 14:02 | PN ---
Physical Exam: SUBJECTIVE: Patient seen and examined at bedside. POD 2 s/p L1-S1 laminectomies ; L1-S1 posterior arthrodesis; L1-S1 posterior instrumentation. No acute events overnight. She admits pain is well controlled with Morphine. Patient has not passed flatus or BM. Denies fevers, chills, CP, SOB, N/V/D, urinary sxs OBJECTIVE: Vital Signs Period Temp Pulse Resp BP Sys/Uribe Pulse Ox Last 24 Hr 98.2 F-98.8 F 82-103 18-20 109-127/43-60 98-98 GENERAL: AOX3 NAD HEAD: NCAT EYES: PERRL, extraocular movements intact, sclera anicteric, conjunctiva clear. ENT: Oropharynx clear without exudates, MMM NECK: Supple without lymphadenopathy LUNGS: CTAB HEART: RRR, S1, S2 without murmur, rub or gallop. ABDOMEN: Obese. Soft, NTND. Normoactive bowel sounds x4 quadrants, no guarding, no rebound tenderness. EXTREMITIES: 2+ radial, dorsalis pedis pulses bilaterally. Warm, well-perfused, no edema bilateral lower extremities. NEUROLOGICAL: Cranial nerves II through XII grossly intact. Normal speech. PSYCH: Normal mood, normal affect upon my encounter today SKIN: Warm, dry. Surgical site bandaged clean, dry. Wound drain noted draining sanguinous drainage. Laboratory Results - last 24 hr 03/20/18 05:30 WBC 10.2 H RBC 3.40 L Hgb 10.3 L Hct 29.4 L MCV 86.6 MCH 30.4 MCHC 35.1 RDW 13.7 Plt Count 149 MPV 8.1 Active Medications Generic Name Dose Route Start Last Admin Trade Name Freq PRN Reason Stop Dose Admin Albuterol Sulfate 2 puff 03/18/18 17:30 Ventolin Hfa Inhaler - IH Q6H PRN SHORTNESS OF BREATH Docusate Sodium 100 mg 03/20/18 12:00 Colace - PO DAILY [facility] Fluticasone Propionate 2 spray 03/19/18 10:00 Flonase - NS DAILY [facility] Hydrochlorothiazide 12.5 mg 03/19/18 10:00 03/20/18 11:30 Hctz - PO Not Given DAILY [facility] Lactated Ringer's 1,000 mls @ 75 mls/hr 03/18/18 19:30 03/18/18 19:45 Lactated Ringers Solution IV 300 mls ASDIR [facility] Administration Ketorolac Tromethamine 30 mg 03/18/18 22:25 03/18/18 21:45 Toradol Injection - IVPUSH 30 mg Q12H PRN Administration PAIN LEVEL 6-10 Lactobacillus Acidophilus 1 tab 03/19/18 10:00 03/20/18 10:00 Bacid - PO 1 tab DAILY [facility] Administration Losartan Potassium 100 mg 03/19/18 10:00 03/20/18 11:30 Cozaar - PO Not Given DAILY [facility] Meclizine HCl 12.5 mg 03/18/18 17:30 Antivert - PO Q8H PRN VERTIGO Montelukast Sodium 10 mg 03/18/18 22:00 03/19/18 21:23 Singulair - PO Not Given HS FRED[facility] Morphine Sulfate 4 mg 03/19/18 07:25 03/20/18 06:30 Morphine Sulfate IVPUSH 4 mg Q4H PRN Administration PAIN LEVEL 1-5 Ondansetron HCl 4 mg 03/18/18 17:17 03/19/18 09:54 Zofran Injection IVPUSH 4 mg Q6H PRN Administration NAUSEA AND/OR VOMITING Ondansetron HCl 4 mg 03/18/18 19:23 Zofran Injection IVPUSH Q6H PRN NAUSEA AND/OR VOMITING Pantoprazole Sodium 40 mg 03/19/18 10:00 03/20/18 10:30 Protonix - PO 40 mg DAILY [facility] Administration Polyethylene Glycol 17 gm 03/20/18 12:00 Miralax (For Daily Use) - PO DAILY [facility] ASSESSMENT/PLAN: 73 y/o F w/PMH of HTN, vertigo, COPD, LE radiculopathy secondary to L4-S1 spinal stenosis. She is POD #2 s/p L1-S1 laminectomies; L1-S1 posterior arthrodesis; L1-S1 posterior instrumentation. L4-S1 spinal stenosis - POD #2 s/p L4-S1 Laminectomies, L1-S1 posterior arthrodesis; L1-S1 posterior instrumentation. -Pain control with morphine and ofirmev -incentive spirometry q15min -PT/OT -Zofran 4mg IV Q6H PRN for nausea -Colace 100mg PO -npo until flatus -d/c diaz once ambulatory -LR@ 75 ml/hr -Follow drain, diaz catheter output. Will D/C diaz catheter once patient ambulatory HTN -c/w hctz 12.5mg qd, losartan 100mg qd COPD -not in acute exacerbation -c/w alb inhaler, singulair 10mg PO HS ID -Patient recieved Cefazolin 2 grams IV x2 doses post- operatively -Bacid 1 tablet daily Anemia - Normocytic - No previous labs available - Monitor hgb Obesity with BMI 31.9 -encourage weight loss Vertigo - ctl c/w meclizine DVT/GI ppx -SCDs -pantoprazole 40 mg po qd -FEN -LR @ 75 ml/hr -Replete as necessary -NPO until flatus -Dispo: -Transfer to medical- surgical floor Visit type - Emergency Visit Emergency Visit: Yes ED Registration Date: 03/18/18 Care time: The patient presented to the Emergency Department on the above date and was hospitalized for further evaluation of their emergent condition. - New Patient This patient is new to me today: Yes Date on this admission: 03/20/18 - Critical Care Critical Care patient: No
[2018-03-20] MEDS: KETOROLAC TROMETHAMINE 30 MG/1 ML VIAL IVPUSH PRN (17:38)
[2018-03-20] MEDS: FLUTICASONE PROP 0.05% 16 GM NASAL SPRAY NS SCH ×2 (17:39→20:37)
[2018-03-20] MEDS: POLYETHYLENE GLYCOL 3350 119 GM BTL PO SCH (17:39)
[2018-03-20] MEDS: DOCUSATE SODIUM 100 MG CAPSULE (FP) PO SCH (17:39)
[2018-03-20] MEDS ORDERED: DOCUSATE SODIUM 100 MG CAPSULE (FP) PO ONE (17:45)
--- NOTE | 2018-03-20 17:54 | PN ---
Teaching Attending Note Name of Resident: Geo Villarreal ATTENDING PHYSICIAN STATEMENT I saw and evaluated the patient. I reviewed the resident's note and discussed the case with the resident. I agree with the resident's findings and plan as documented. SUBJECTIVE: Pain tolerable. No numbness/tingling in extremities. No flatus as yet. No fever/chills. OBJECTIVE: Afebrile, Hemodynamically Stable Last Vital Signs Temp Pulse Resp BP Pulse Ox 98.2 F 103 H 20 110/53 L 98 03/20/18 06:00 03/20/18 11:34 03/20/18 11:34 03/20/18 11:34 03/20/18 11:30 HEENT - Atraumatic, Hemodynamically Stable. Heart - S1, S2, RRR Lungs - clear to auscultation Abdomen - Soft, non-tender. Bowel Sounds normal. Extremities - No edema. No calf tenderness. Neuro - AAO x 3. Tone/Power normal all 4 extremities. MS - surgical dressing in place. Laboratory Results - last 24 hr 03/20/18 05:30 WBC 10.2 H RBC 3.40 L Hgb 10.3 L Hct 29.4 L MCV 86.6 MCH 30.4 MCHC 35.1 RDW 13.7 Plt Count 149 MPV 8.1 Current Medications Generic Name Dose Route Start Last Admin Trade Name Freq PRN Reason Stop Dose Admin Albuterol Sulfate 2 puff 03/18/18 17:30 Ventolin Hfa Inhaler - IH Q6H PRN SHORTNESS OF BREATH Docusate Sodium 100 mg 03/20/18 12:00 03/20/18 17:39 Colace - PO 100 mg DAILY [facility] Administration Fluticasone Propionate 2 spray 03/19/18 10:00 03/20/18 17:39 Flonase - NS Not Given DAILY [facility] Hydrochlorothiazide 12.5 mg 03/19/18 10:00 03/20/18 11:30 Hctz - PO Not Given DAILY [facility] Lactated Ringer's 1,000 mls @ 75 mls/hr 03/18/18 19:30 03/18/18 19:45 Lactated Ringers Solution IV 300 mls ASDIR [facility]EDDY Administration Lactobacillus Acidophilus 1 tab 03/19/18 10:00 03/20/18 10:00 Bacid - PO 1 tab DAILY FREDDY Administration Losartan Potassium 100 mg 03/19/18 10:00 03/20/18 11:30 Cozaar - PO Not Given DAILY FRED[facility] Meclizine HCl 12.5 mg 03/18/18 17:30 Antivert - PO Q8H PRN VERTIGO Montelukast Sodium 10 mg 03/18/18 22:00 03/19/18 21:23 Singulair - PO Not Given HS FREDDY Morphine Sulfate 4 mg 03/19/18 07:25 03/20/18 06:30 Morphine Sulfate IVPUSH 4 mg Q4H PRN Administration PAIN LEVEL 1-5 Ondansetron HCl 4 mg 03/18/18 17:17 03/19/18 09:54 Zofran Injection IVPUSH 4 mg Q6H PRN Administration NAUSEA AND/OR VOMITING Ondansetron HCl 4 mg 03/18/18 19:23 Zofran Injection IVPUSH Q6H PRN NAUSEA AND/OR VOMITING Pantoprazole Sodium 40 mg 03/19/18 10:00 03/20/18 10:30 Protonix - PO 40 mg DAILY [facility] Administration Polyethylene Glycol 17 gm 03/20/18 12:00 03/20/18 17:39 Miralax (For Daily Use) - PO 17 gm DAILY [facility]DY Administration ASSESSMENT AND PLAN: 73 year old female with history of HTN, vertigo, COPD, lumbar disc disease with radiculopathy, lumbar spinal stenosis with neurogenic claudication who was admitted for elective lumbar spine surgery. 1. Lumbar disc disease with radiculopathy, lumbar spinal stenosis with neurogenic claudication POD 2 s/p L4, L5, S1 laminectomies; L3 laminotomy; L4-L5, L5-S1 discectomy; L4- L5, L5-S1 PLIF; insertion biomechanical devices L4-L5, L5-S1; L4-L5, L5-S1 posterior arthrodesis; L4-L5, L5-S1 posterior instrumentation; bone autograft; bone allograft; bone marrow aspiration; stem cell autograft; complex wound closure (10cm) on 03/18 NPO pending flatus. Gentle IV hydration PT Anelgesia with MS. 2. HTN - Continue Cozaar, HCTZ 3. COPD - Stable - Continue Singulair, albuterol as needed. DVT Px - SCDs GI Px - Protonix
[2018-03-20] MEDS ORDERED: ALBUTEROL SO4 8 GM HFA INHALER IH PRN (19:00)
[2018-03-20] MEDS ORDERED: ONDANSETRON 4 MG/2 ML VIAL IVPUSH PRN (19:00)
[2018-03-20] MEDS ORDERED: MECLIZINE HCL 12.5 MG TABLET PO PRN (19:00)
[2018-03-20] MEDS: MONTELUKAST NA 10 MG TABLET PO SCH ×2 (20:38→21:50)
[2018-03-20] MEDS: LACTATED RINGERS SOLUTION 1,000 ML IV SCH (21:50)
[2018-03-21] MEDS: ACETAMINOPHEN 325 MG TABLET (FP) PO PRN ×2 (00:54→06:05)
[2018-03-21] MEDS: LACTATED RINGERS SOLUTION 1,000 ML IV SCH (06:01)
[2018-03-21 09:02] LABS: HEMATOCRIT 26.7 % (32.4-45.2); HEMOGLOBIN 9.2 GM/dL (10.7-15.3); MCH 29.9 pg (25.7-33.7); MCHC 34.3 g/dl (32.0-36.0); MEAN CELL VOLUME 86.9 fl (80-96); PLATELET COUNT 161 K/MM3 (134-434); RBC 3.07 M/mm3 (3.60-5.2); RDW 13.6 % (11.6-15.6)
[2018-03-21] MEDS ORDERED: PT OWN MED DRAWER 7, Y5N ONE ×2 (09:26→14:06)
[2018-03-21] MEDS: DOCUSATE SODIUM 100 MG CAPSULE (FP) PO SCH (09:35)
[2018-03-21] MEDS: LOSARTAN POTASSIUM 50 MG TABLET (FP) PO SCH (09:35)
[2018-03-21] MEDS: LACTOBACILLUS ACIDOPHILUS 1 TABLET PO SCH (09:35)
[2018-03-21] MEDS: HYDROCHLOROTHIAZIDE 12.5 MG CAPSULE (FP) PO SCH (09:36)
[2018-03-21] MEDS: POLYETHYLENE GLYCOL 3350 119 GM BTL PO SCH (09:36)
[2018-03-21] MEDS: PANTOPRAZOLE 40 MG TABLET (FP) PO SCH (09:37)
[2018-03-21] MEDS: morphine SULFATE 4 MG/ML VIAL IVPUSH PRN ×3 (09:37→18:09)
[2018-03-21] MEDS: FLUTICASONE PROP 0.05% 16 GM NASAL SPRAY NS SCH (09:40)
--- NOTE | 2018-03-21 12:28 | PN ---
Physical Exam: SUBJECTIVE: Patient seen and examined at bedside. POD 3 s/p L1-S1 laminectomies ; L1-S1 posterior arthrodesis; L1-S1 posterior instrumentation. Overnight part of hemovac was pulled out when pt repositioned herself, lower part of back dressing saturated w blood but reinforced dressing by nurse, Dr. Lara aware and to pull out the drain today. pain is well controlled with Morphine. +flatus today but no BM. tolerating liquids. Denies fevers, chills, CP, SOB, N/V/D, urinary sxs. pt states she plans/wants to go to [facility] in [place] for rehab. OBJECTIVE: Vital Signs Period Temp Pulse Resp BP Sys/Uribe Pulse Ox Last 24 Hr 97.5 F-98.4 F 97-105 20-20 91-130/53-77 98 ENERAL: AOX3 NAD HEAD: NCAT EYES: PERRL, extraocular movements intact, sclera anicteric, conjunctiva clear. ENT: Oropharynx clear without exudates, MMM NECK: Supple without lymphadenopathy LUNGS: CTAB HEART: RRR, S1, S2 without murmur, rub or gallop. ABDOMEN: Obese. Soft, NTND. Normoactive bowel sounds x4 quadrants, no guarding, no rebound tenderness. EXTREMITIES: 2+ radial, dorsalis pedis pulses bilaterally. Warm, well-perfused, no edema bilateral lower extremities. NEUROLOGICAL: Cranial nerves II through XII grossly intact. Normal speech. PSYCH: Normal mood, normal affect upon my encounter today SKIN: Warm, dry. Surgical site bandaged clean, dry. Wound drain noted, not draining anymore, needs to be pulled by surgery Laboratory Results - last 24 hr 03/21/18 08:01 WBC 10.0 RBC 3.07 L Hgb 9.2 L Hct 26.7 L MCV 86.9 MCH 29.9 MCHC 34.3 RDW 13.6 Plt Count 161 MPV 8.0 Active Medications Generic Name Dose Route Start Last Admin Trade Name Freq PRN Reason Stop Dose Admin Acetaminophen 650 mg 03/20/18 23:00 03/21/18 06:05 Tylenol - PO 650 mg Q6H PRN Administration PAIN OR FEVER Albuterol Sulfate 2 puff 03/20/18 19:00 Ventolin Hfa Inhaler - IH Q6H PRN SHORTNESS OF BREATH Docusate Sodium 100 mg 03/20/18 12:00 03/21/18 09:35 Colace - PO 100 mg DAILY FREDDY Administration Fluticasone Propionate 2 spray 03/21/18 10:00 03/21/18 09:40 Flonase - NS 2 spray DAILY FREDDY Administration Hydrochlorothiazide 12.5 mg 03/21/18 10:00 03/21/18 09:36 Hctz - PO 12.5 mg DAILY FREDDY Administration Lactobacillus Acidophilus 1 tab 03/21/18 10:00 03/21/18 09:35 Bacid - PO 1 tab DAILY FREDDY Administration Losartan Potassium 100 mg 03/21/18 10:00 03/21/18 09:35 Cozaar - PO 100 mg DAILY FREDDY Administration Meclizine HCl 12.5 mg 03/20/18 19:00 Antivert - PO Q8H PRN VERTIGO Montelukast Sodium 10 mg 03/20/18 22:00 03/20/18 21:50 Singulair - PO Not Given HS [facility] Morphine Sulfate 4 mg 03/20/18 19:00 03/21/18 09:37 Morphine Sulfate IVPUSH 4 mg Q4H PRN Administration PAIN LEVEL 1-5 Ondansetron HCl 4 mg 03/20/18 19:00 Zofran Injection IVPUSH Q6H PRN NAUSEA AND/OR VOMITING Pantoprazole Sodium 40 mg 03/21/18 10:00 03/21/18 09:37 Protonix - PO 40 mg DAILY FREDDY Administration Polyethylene Glycol 17 gm 03/20/18 12:00 03/21/18 09:36 Miralax (For Daily Use) - PO 17 gm DAILY FREDDY Administration ASSESSMENT/PLAN: 73 y/o F w/PMH of HTN, vertigo, COPD, LE radiculopathy secondary to L4-S1 spinal stenosis. She is POD #3 s/p L1-S1 laminectomies; L1-S1 posterior arthrodesis; L1-S1 posterior instrumentation. L4-S1 spinal stenosis - POD #3 s/p L4-S1 Laminectomies, L1-S1 posterior arthrodesis; L1-S1 posterior instrumentation. -Pain control with IV morphine and PO Tylenol -incentive spirometry q15min -PT/OT -Zofran 4mg IV Q6H PRN for nausea -bowel regimen: Colace 100mg PO, miralax -+flatus, tolerating liquids, advance diet -d/c diaz once ambulatory -dc LR@ 75 ml/hr -hemovac pulled out overnight, dressing reinforced, Dr. Lara aware and to pull out drain today HTN -c/w hctz 12.5mg qd, losartan 100mg qd COPD -not in acute exacerbation -c/w alb inhaler, singulair 10mg PO HS ID -Patient recieved Cefazolin 2 grams IV x2 doses post- operatively -Bacid 1 tablet daily Anemia - Normocytic - No previous labs available - Monitor hgb Obesity with BMI 31.9 -encourage weight loss Vertigo - ctl c/w meclizine DVT/GI ppx -SCDs -pantoprazole 40 mg po qd -FEN -dc LR @ 75 ml/hr, PO hydration -Replete prn -+flatus, tolerating liquids, advance to low Na diet -Dispo: -medical- surgical floor pt states she plans/wants to go to [facility] in [place] for rehab. SW/insurance case manager aware dc likely tomorrow pending [facility] placement Visit type - Emergency Visit Emergency Visit: Yes ED Registration Date: 03/18/18 Care time: The patient presented to the Emergency Department on the above date and was hospitalized for further evaluation of their emergent condition. - New Patient This patient is new to me today: Yes Date on this admission: 03/21/18 - Critical Care Critical Care patient: No
--- NOTE | 2018-03-21 14:48 | PN ---
Teaching Attending Note Name of Resident: Geo Villarreal ATTENDING PHYSICIAN STATEMENT I saw and evaluated the patient. I reviewed the resident's note and discussed the case with the resident. I agree with the resident's findings and plan as documented. SUBJECTIVE: Pain tolerable. No numbness/tingling in extremities. Flatus +. Tolerating oral intake. No fever/chills. OBJECTIVE: Afebrile, Hemodynamically Stable. Last Vital Signs Temp Pulse Resp BP Pulse Ox 97.5 F L 97 H 20 124/72 98 03/21/18 08:10 03/21/18 08:10 03/21/18 08:10 03/21/18 08:10 03/20/18 21:00 HEENT - Atraumatic, Hemodynamically Stable. Heart - S1, S2, RRR Lungs - clear to auscultation Abdomen - Soft, non-tender. Bowel Sounds normal. Extremities - No edema. No calf tenderness. Neuro - AAO x 3. Tone/Power normal all 4 extremities. MS - surgical dressing in place. Laboratory Results - last 24 hr 03/21/18 08:01 WBC 10.0 RBC 3.07 L Hgb 9.2 L Hct 26.7 L MCV 86.9 MCH 29.9 MCHC 34.3 RDW 13.6 Plt Count 161 MPV 8.0 Current Medications Generic Name Dose Route Start Last Admin Trade Name Jadq PRN Reason Stop Dose Admin Acetaminophen 650 mg 03/20/18 23:00 03/21/18 06:05 Tylenol - PO 650 mg Q6H PRN Administration PAIN OR FEVER Albuterol Sulfate 2 puff 03/20/18 19:00 Ventolin Hfa Inhaler - IH Q6H PRN SHORTNESS OF BREATH Docusate Sodium 100 mg 03/20/18 12:00 03/21/18 09:35 Colace - PO 100 mg DAILY FREDDY Administration Fluticasone Propionate 2 spray 03/21/18 10:00 03/21/18 09:40 Flonase - NS 2 spray DAILY FREDDY Administration Hydrochlorothiazide 12.5 mg 03/21/18 10:00 03/21/18 09:36 Hctz - PO 12.5 mg DAILY FREDDY Administration Lactobacillus Acidophilus 1 tab 03/21/18 10:00 03/21/18 09:35 Bacid - PO 1 tab DAILY FREDDY Administration Losartan Potassium 100 mg 03/21/18 10:00 03/21/18 09:35 Cozaar - PO 100 mg DAILY FREDDY Administration Meclizine HCl 12.5 mg 03/20/18 19:00 03/21/18 14:10 Antivert - PO 12.5 mg Q8H PRN Administration VERTIGO Montelukast Sodium 10 mg 03/20/18 22:00 03/20/18 21:50 Singulair - PO Not Given HS FREDDY Morphine Sulfate 4 mg 03/20/18 19:00 03/21/18 14:09 Morphine Sulfate IVPUSH 4 mg Q4H PRN Administration PAIN LEVEL 1-5 Ondansetron HCl 4 mg 03/20/18 19:00 Zofran Injection IVPUSH Q6H PRN NAUSEA AND/OR VOMITING Pantoprazole Sodium 40 mg 03/21/18 10:00 03/21/18 09:37 Protonix - PO 40 mg DAILY FREDDY Administration Polyethylene Glycol 17 gm 03/20/18 12:00 03/21/18 09:36 Miralax (For Daily Use) - PO 17 gm DAILY FREDDY Administration ASSESSMENT AND PLAN: 73 year old female with history of HTN, vertigo, COPD, lumbar disc disease with radiculopathy, lumbar spinal stenosis with neurogenic claudication who was admitted for elective lumbar spine surgery. 1. Lumbar disc disease with radiculopathy, lumbar spinal stenosis with neurogenic claudication POD 3 s/p L4, L5, S1 laminectomies; L3 laminotomy; L4-L5, L5-S1 discectomy; L4- L5, L5-S1 PLIF; insertion biomechanical devices L4-L5, L5-S1; L4-L5, L5-S1 posterior arthrodesis; L4-L5, L5-S1 posterior instrumentation; bone autograft; bone allograft; bone marrow aspiration; stem cell autograft; complex wound closure (10cm) on 03/18. Tolerating oral intake. PT 2. HTN - Continue Cozaar, HCTZ 3. COPD - Stable - Continue Singulair, albuterol as needed. 4. Anemia, Chronic, normocytic. Work-up as out-patient by PCP. DVT Px - SCDs GI Px - Protonix
[2018-03-21] MEDS: MONTELUKAST NA 10 MG TABLET PO SCH (21:25)
[2018-03-22] MEDS: morphine SULFATE 4 MG/ML VIAL IVPUSH PRN ×2 (06:20→16:00)
[2018-03-22 06:56] LABS: HEMATOCRIT 26.8 % (32.4-45.2); HEMOGLOBIN 9.3 GM/dL (10.7-15.3); MCH 30.1 pg (25.7-33.7); MCHC 34.7 g/dl (32.0-36.0); MEAN CELL VOLUME 86.7 fl (80-96); PLATELET COUNT 184 K/MM3 (134-434); RBC 3.09 M/mm3 (3.60-5.2); RDW 13.4 % (11.6-15.6); WHITE BLOOD COUNT 8.6 K/mm3 (4.0-10.0)
[2018-03-22] MEDS: LOSARTAN POTASSIUM 50 MG TABLET (FP) PO SCH (09:40)
[2018-03-22] MEDS: PANTOPRAZOLE 40 MG TABLET (FP) PO SCH (09:40)
[2018-03-22] MEDS: LACTOBACILLUS ACIDOPHILUS 1 TABLET PO SCH (09:40)
[2018-03-22] MEDS: HYDROCHLOROTHIAZIDE 12.5 MG CAPSULE (FP) PO SCH (09:41)
[2018-03-22] MEDS: DOCUSATE SODIUM 100 MG CAPSULE (FP) PO SCH (09:41)
[2018-03-22] MEDS: FLUTICASONE PROP 0.05% 16 GM NASAL SPRAY NS SCH (09:43)
[2018-03-22] MEDS: POLYETHYLENE GLYCOL 3350 119 GM BTL PO SCH (09:49)
--- NOTE | 2018-03-22 11:06 | PROC ---
Procedure Note Procedure: Asked by Dr. Aydin Lara if our Team could remove the hemovac drain. Dressing taken down. Incision clean with cheko intact. No evidence of infection. Drain removed with distal tip intact. 2x2 gauze and occlusive dressing applied over drain ostium. New dry dressing applied. Tolerated well.
[2018-03-22] MEDS: ACETAMINOPHEN 325 MG TABLET (FP) PO PRN ×2 (12:33→18:39)
--- NOTE | 2018-03-22 13:49 | DS ---
Physical Exam: SUBJECTIVE:Patient seen and examined at bedside. POD 4 s/p L1-S1 laminectomies; L1-S1 posterior arthrodesis; L1-S1 posterior instrumentation. pain is well controlled with Morphine. +flatus and tolerating PO. Denies fevers, chills, CP, SOB, N/V/D, urinary sxs. pt to go SNF OBJECTIVE: Vital Signs Period Temp Pulse Resp BP Sys/Uribe Pulse Ox Last 24 Hr 98 F-99.7 F 98-100 18-18 118-133/59-66 96 PHYSICAL EXAM GENERAL: AOX3 NAD HEAD: NCAT EYES: PERRL, extraocular movements intact, sclera anicteric, conjunctiva clear. ENT: Oropharynx clear without exudates, MMM NECK: Supple without lymphadenopathy LUNGS: CTAB HEART: RRR, S1, S2 without murmur, rub or gallop. ABDOMEN: Obese. Soft, NTND. Normoactive bowel sounds x4 quadrants, no guarding, no rebound tenderness. EXTREMITIES: 2+ radial, dorsalis pedis pulses bilaterally. Warm, well-perfused, no edema bilateral lower extremities. NEUROLOGICAL: Cranial nerves II through XII grossly intact. Normal speech. PSYCH: Normal mood, normal affect upon my encounter today SKIN: Warm, dry. Surgical site bandaged clean, dry. Wound drain noted, not draining anymore, needs to be pulled by surgery LABS Laboratory Results - last 24 hr 03/22/18 05:45 WBC 8.6 RBC 3.09 L Hgb 9.3 L Hct 26.8 L MCV 86.7 MCH 30.1 MCHC 34.7 RDW 13.4 Plt Count 184 MPV 8.0 HOSPITAL COURSE: Date of Admission:03/18/18 Date of Discharge: 03/22/18 73 y/o F w/PMH of HTN, vertigo, COPD, LE radiculopathy secondary to L4-S1 spinal stenosis. She is POD #4 s/p L1-S1 laminectomies; L1-S1 posterior arthrodesis; L1-S1 posterior instrumentation. Admitted for L1-S1 laminectomies; L1-S1 posterior arthrodesis; L1-S1 posterior instrumentation. surgery was w/o complications. pt monitored on floors. pt pain was ctl w/ morphine and tylenol. pt +flatus and tolerating PO. Was seen by PT and was w/ some ambulation. Now set to go SNF FACILITY at [facility]. Anemia, Chronic, normocytic. Work-up as out-patient by PCP. pt informed Obesity with BMI 31.9 -encourage weight loss pt stable and ready for dc Minutes to complete discharge: 37 Discharge Summary Reason For Visit: SPINAL STENOSIS LUMBAR Condition: Stable - Instructions Diet, Activity, Other Instructions: you came in for surgery with Dr. Lara for your back (L1-S1 vertebrae). Your surgery was without complication and your neuropathy improved. You will be sent to a rehab facility for further post operative care and recovery. -Please avoid bending, lifting more than 5lbs, or twisting x 6 months. -please keep the dressing dry, and don't submerge in water -Change dressing daily with dry gauze Please continue your medications as indicated below and further down in the discharge packet: Cozaar 100mg daily Meclizine 12.5mg every 8 hours NEEDED for any vertigo HCTZ 12.5mg Singular 10mg at night once daily We noticed that your blood counts were low. please follow up with your PCP to for further work up Please follow up with Dr. Jane bustos 03/29/2018 at [facility] [place] office ; call for appointment; . Please follow up with your PCP within 1-2 weeks If you experience any fevers, chills, shortness of breath, new or worsening pain in back or legs, or leg weakness or numbness, or inability to hold your urine, please call 911 or go to the ER. Referrals: Aydin Lara MD [Staff Physician] - 03/29/18 Disposition: PENITENTIARY FACILITY - Home Medications Comprehensive Discharge Medication List: Ambulatory Orders Albuterol Sulfate Inhaler - [Ventolin HFA Inhaler -] 1 puff IH PRN 03/15/18 Bifidobacterium Infantis [Align] 10.5 mg PO DAILY 03/15/18 Ferrous Gluconate [Fergon] 270 mg PO DAILY 03/15/18 Fluticasone Propionate 9.9 ml NS DAILY 03/15/18 Loratadine [Claritin] 10 mg PO DAILY 03/15/18 Losartan/Hydrochlorothiazide [Losartan-Hctz 100-12.5 mg Tab] 1 each PO DAILY 09/23 Meclizine HCl 12.5 mg PO PRN 03/15/18 Montelukast Na [Singulair -] 10 mg PO HS 03/15/18 Omeprazole 40 mg PO DAILY 03/15/18 This patient is new to me today: Yes Date on this admission: 03/22/18 Emergency Visit: Yes ED Registration Date: 03/18/18 Care time: The patient presented to the Emergency Department on the above date and was hospitalized for further evaluation of their emergent condition. Critical Care patient: No - Discharge Referral Referred to [facility] Med P.C.: No
[2018-03-22 15:18] VITALS: BP 129/69; PULSE 76; TEMP 98.5
--- NOTE | 2018-03-22 17:44 | PN ---
Teaching Attending Note Name of Resident: Geo Villarreal ATTENDING PHYSICIAN STATEMENT I saw and evaluated the patient. I reviewed the resident's note and discussed the case with the resident. I agree with the resident's findings and plan as documented. SUBJECTIVE: Pain tolerable. No numbness/tingling in extremities. Tolerating oral intake. No fever/chills. OBJECTIVE: Afebrile, Hemodynamically Stable. Last Vital Signs Temp Pulse Resp BP Pulse Ox 98.5 F 76 18 129/69 96 03/22/18 15:17 03/22/18 15:17 03/22/18 15:17 03/22/18 15:17 03/22/18 09:00 HEENT - Atraumatic, Hemodynamically Stable. Heart - S1, S2, RRR Lungs - clear to auscultation Abdomen - Soft, non-tender. Bowel Sounds normal. Extremities - No edema. No calf tenderness. Neuro - AAO x 3. Tone/Power normal all 4 extremities. MS - surgical dressing in place with drain in situ. Laboratory Results - last 24 hr 03/22/18 05:45 WBC 8.6 RBC 3.09 L Hgb 9.3 L Hct 26.8 L MCV 86.7 MCH 30.1 MCHC 34.7 RDW 13.4 Plt Count 184 MPV 8.0 Current Medications Generic Name Dose Route Start Last Admin Trade Name Jadq PRN Reason Stop Dose Admin Acetaminophen 650 mg 03/20/18 23:00 03/22/18 12:33 Tylenol - PO 650 mg Q6H PRN Administration PAIN OR FEVER Albuterol Sulfate 2 puff 03/20/18 19:00 Ventolin Hfa Inhaler - IH Q6H PRN SHORTNESS OF BREATH Docusate Sodium 100 mg 03/20/18 12:00 03/22/18 09:41 Colace - PO 100 mg DAILY FREDDY Administration Fluticasone Propionate 2 spray 03/21/18 10:00 03/22/18 09:43 Flonase - NS 2 spray DAILY FREDDY Administration Hydrochlorothiazide 12.5 mg 03/21/18 10:00 03/22/18 09:41 Hctz - PO 12.5 mg DAILY FREDDY Administration Lactobacillus Acidophilus 1 tab 03/21/18 10:00 03/22/18 09:40 Bacid - PO 1 tab DAILY FREDDY Administration Losartan Potassium 100 mg 03/21/18 10:00 03/22/18 09:40 Cozaar - PO 100 mg DAILY FREDDY Administration Meclizine HCl 12.5 mg 03/20/18 19:00 03/21/18 14:10 Antivert - PO 12.5 mg Q8H PRN Administration VERTIGO Montelukast Sodium 10 mg 03/20/18 22:00 03/21/18 21:25 Singulair - PO 10 mg HS FREDDY Administration Morphine Sulfate 4 mg 03/20/18 19:00 03/22/18 16:00 Morphine Sulfate IVPUSH 4 mg Q4H PRN Administration PAIN LEVEL 1-5 Ondansetron HCl 4 mg 03/20/18 19:00 Zofran Injection IVPUSH Q6H PRN NAUSEA AND/OR VOMITING Pantoprazole Sodium 40 mg 03/21/18 10:00 03/22/18 09:40 Protonix - PO 40 mg DAILY FREDDY Administration Polyethylene Glycol 17 gm 03/20/18 12:00 03/22/18 09:49 Miralax (For Daily Use) - PO 17 gm DAILY FREDDY Administration ASSESSMENT AND PLAN: 73 year old female with history of HTN, vertigo, COPD, lumbar disc disease with radiculopathy, lumbar spinal stenosis with neurogenic claudication who was admitted for elective lumbar spine surgery. Orthopedic Surgery has not followed patient post-operatively in 4 days. 1. Lumbar disc disease with radiculopathy, lumbar spinal stenosis with neurogenic claudication POD 4 s/p L4, L5, S1 laminectomies; L3 laminotomy; L4-L5, L5-S1 discectomy; L4- L5, L5-S1 PLIF; insertion biomechanical devices L4-L5, L5-S1; L4-L5, L5-S1 posterior arthrodesis; L4-L5, L5-S1 posterior instrumentation; bone autograft; bone allograft; bone marrow aspiration; stem cell autograft; complex wound closure (10cm) on 03/18. Tolerating oral intake. Medically Stable for transfer to SNF for ongoing Rehab pending Surgery eval and drain removal. Dr. Lara contacted regarding need for drain removal and issue of no ortho follow up in over 4 days. 2. HTN - Continue Cozaar, HCTZ 3. COPD - Stable - Continue Singulair, albuterol as needed. 4. Anemia, Chronic, normocytic. Work-up as out-patient by PCP. DVT Px - SCDs GI Px - Protonix
== END 2018-03-22 19:33 | DRG 458 ==
LOC: JSAMEDAYSX 09:53 → JICU 22:20 → J8W 03-20 19:30
PROVIDERS: ADMIT Orthopaedic Surgery Orthopaedic Surgery of the Spine
PROC: 0ST40ZZ Resection of Lumbosacral Disc, Open Approach (ICD-10-PCS; 2018-03-18)
PROC: 00NY0ZZ Release Lumbar Spinal Cord, Open Approach (ICD-10-PCS; 2018-03-18)
PROC: 07DR0ZZ Extraction of Iliac Bone Marrow, Open Approach (ICD-10-PCS; 2018-03-18)
PROC: B01BZZZ Fluoroscopy of Spinal Cord (ICD-10-PCS; 2018-03-18)
PROC: 4A1004G Monitoring of Central Nervous Electrical Activity, Intraoperative, Open Approach (ICD-10-PCS; 2018-03-18)
PROC: 0SG30AJ Fusion of Lumbosacral Joint with Interbody Fusion Device, Posterior Approach, Anterior Column, Open Approach (ICD-10-PCS; principal; 2018-03-18 12:15)
DX: M40.209 Unspecified kyphosis, site unspecified (principal); M51.17 Intervertebral disc disorders with radiculopathy, lumbosacral region; M48.07 Spinal stenosis, lumbosacral region; I10 Essential (primary) hypertension; J44.9 Chronic obstructive pulmonary disease, unspecified; R42 Dizziness and giddiness; R11.0 Nausea; E66.9 Obesity, unspecified; Z68.31 Body mass index [BMI] 31.0-31.9, adult; D64.9 Anemia, unspecified; M43.16 Spondylolisthesis, lumbar region
CPT/HCPCS: 36415; 76000-TC-FY; 80048; 85027; 86850; 86900; 86901; 94010; 94760; 97116-GP; 97161-GP; J0131; J1644

== ENCOUNTER 2019-11-19 08:54 | Day surgery (SDC) | payer BC ==
--- OUTSIDE RECORDS SUMMARY | 2019-10-28 14:12 | XMS ---
:1945 Author Organization [facility] Support Name Relationship Address Phone RE Unavailable Unavailable Unavailable BERNADETTE STOKES BROTHER [address] [place] [address] Re-disclosure Warning The records that you are about to access may contain information from federally- assisted alcohol or drug abuse programs. If such information is present, then the following federally mandated warning applies: This information has been disclosed to you from records protected by federal confidentiality rules (42 CFR part 2). The federal rules prohibit you from making any further disclosure of this information unless further disclosure is expressly permitted by the written consent of the person to whom it pertains or as otherwise permitted by 42 CFR part 2. A general authorization for the release of medical or other information is NOT sufficient for this purpose. The Federal rules restrict any use of the information to criminally investigate or prosecute any alcohol or drug abuse patient.The records that you are about to access may contain highly sensitive health information, the redisclosure of which is protected by Article 27-F of the [facility] Public Health law. If you continue you may haveaccess to information: Regarding HIV / AIDS; Provided by facilities licensed or operated by the [facility] Office of Mental Health; or Provided by the [facility] Office for People With Developmental Disabilities. If such information is present, then the following [facility] mandated warning applies: This information has been disclosed to you from confidential records which are protected by state law. State law prohibits you from making any further disclosure of this information without the specific written consent of the person to whom it pertains, or as otherwise permitted by law. Any unauthorized further disclosure in violation of state law may result in a fine or custodial sentence or both. A general authorization for the release of medical or other information is NOT sufficient authorization for further disclosure. Insurance Providers Payer name Policy type Policy ID Covered Covered green party's Policy P donna / Coverage green party ID relationship to [employer] Inf ormation type galvez [employer] MEDICARE [id number] SP [id number] BLUE CROSS [id number] SP [id number] [facility] PLAN 5 POS [id number] SP [id number]
[2019-11-05 13:31] VITALS: BMI 33.5
--- OUTSIDE RECORDS SUMMARY | 2019-11-19 08:58 | XMS ---
:1945 Author Organization [facility] Support Name Relationship Address Phone RE Unavailable Unavailable Unavailable BERNADETTE STOKES BROTHER [address] [phone] [place] [address] Re-disclosure Warning The records that you are [...] is protected by Article 27-F of the [facility] Public Health law. If you continue you may haveaccess to information: Regarding HIV / AIDS; Provided by facilities licensed or operated by the [facility] Office of Mental Health; or Provided by the [facility] Office for People With Developmental Disabilities. If such information is present, then the following [facility] mandated warning applies: This information has been [...] law may result in a fine or detention sentence or both. A general authorization for the release of medical or other information is NOT sufficient authorization for further disclosure. Insurance Providers Payer name Policy type Policy ID Covered Covered green party's Policy P donna / Coverage green party ID relationship to [employer] Inf ormation type galvez BLUE CROSS [id number] SP [id number] [employer] PLAN 5 [employer] MEDICARE [id number] SP [id number] BC POS [id number] SP [id number] Results ID Date Data Source [id number] 11/15/2019 12:59:00 PM EDT [facility] Name Value Range Interpretation Description Data Sup porting Code Source(s) Document(s ) SARS [facility] coronavirus 2 RNA This lab was ordered by [facility] and reported by [facility]. Procedure
[2019-11-19] MEDS ORDERED: MIDAZOLAM HCL 2 MG/2 ML SINGLE DOSE VIAL ONE ×3 (09:36→10:53)
[2019-11-19] MEDS ORDERED: SODIUM CHLORIDE 0.9% P/F 10 ML VIAL IJ ONE (09:36)
[2019-11-19] MEDS ORDERED: BUPIVACAINE LIPOSOME/PF (EXPAREL) 266 MG/20 ML VIAL ONE (09:36)
[2019-11-19] MEDS ORDERED: BUPIVACAINE HCL/PF 0.5% (5 MG/ML) 30 ML VIAL IJ ONE (10:02)
--- NOTE | 2019-11-19 10:14 | HP ---
History & Physical Update - History History: No Change - Physical Physical: No Change - Assessment Assessment: No Change - Plan Plan: No Change (Cardiac and General medical clearance)
--- NOTE | 2019-11-19 10:23 | HP ---
History & Physical Update - History History: No Change - Physical Physical: No Change - Assessment Assessment: No Change - Plan Plan: No Change
[2019-11-19] MEDS ORDERED: PROPOFOL 20 ML ONE ×5 (11:04)
[2019-11-19] MEDS ORDERED: ceFAZolin SODIUM 1 GM VIAL ONE ×3 (11:35→14:44)
[2019-11-19] MEDS ORDERED: TRANEXAMIC ACID 1000 MG/10 ML VIAL IVPUSH ONE (13:00)
[2019-11-19] MEDS ORDERED: CEFAZOLIN 2 GM in DEXTROSE 5%-WATER - 50 ML IVPB ONE (13:00)
[2019-11-19] MEDS ORDERED: BENZOIN/ALOE VERA/STORAX/TOLU 58 ML BOTTLE ONE (13:31)
[2019-11-19] MEDS ORDERED: ONDANSETRON 4 MG/2 ML VIAL IVPUSH PRN ×2 (14:03→14:16)
[2019-11-19] MEDS ORDERED: MAGNESIUM HYDROX 2400MG/30ML ORAL SUSPENSION 30 ML CUP PO PRN (14:03)
[2019-11-19] MEDS ORDERED: MAG HYDROX/AL HYDROX/SIMETH 30 ML UNIT-DOSE CUP PO PRN (14:03)
[2019-11-19] MEDS ORDERED: FLUTICASONE PROP 0.05% 16 GM NASAL SPRAY NS PRN (14:07)
[2019-11-19] MEDS ORDERED: MECLIZINE HCL 12.5 MG TABLET PO SCH (14:15)
[2019-11-19] MEDS ORDERED: ALBUTEROL SO4 HFA INHALER IH SCH (14:15)
[2019-11-19] MEDS ORDERED: LACTATED RINGERS SOLUTION 1,000 ML IV SCH (14:15)
[2019-11-19] MEDS ORDERED: PROMETHAZINE HCL 25 MG/1 ML VIAL IVPUSH PRN (14:16)
[2019-11-19] MEDS ORDERED: oxyCODONE HCL 5 MG TABLET PO PRN ×2 (14:16→14:17)
--- NOTE | 2019-11-19 14:16 | OP ---
Operative Note - Note: Operative Date: 11/19/19 Pre-Operative Diagnosis: left knee osteoarthritis Operation: s/p left total knee replacment Surgeon: Aydin Lara Director Loss Prevention: Misty Lala Anesthesiologist/WHEAT SHIPPER: Vin Thomas Anesthesia: Spinal Estimated Blood Loss (mls): 50 Fluid Volume Replaced (mls): 1,000 Operative Report Dictated: Yes
[2019-11-19] MEDS ORDERED: ACETAMINOPHEN 1000 MG/100 ML VIAL (NON FORMULARY) IVPB ONE (14:17)
--- NOTE | 2019-11-19 14:20 | SURG ---
Surgery Brazing Machine Feeder Note Brazing Machine Feeder: Misty Lala PA-C Date of Service: 11/19/19 Diagnosis: left knee osteoarthritis Procedure: s/p left total knee replacement I was present for the entirety of the operative procedure. For further detail, please refer to operative report. Visit type - Case Type Case Type: Scheduled - Emergency Emergency Visit: No - New patient This patient is new to me today: Yes Date on this admission: 11/19/19
[2019-11-19] MEDS ORDERED: ceFAZolin SODIUM 1 GM VIAL IVPB ONE (14:50)
[2019-11-19] MEDS ORDERED: LORATADINE 10 MG TABLET PO PRN (15:34)
[2019-11-19] MEDS ORDERED: CEFAZOLIN 1 GM in DEXTROSE 5%-WATER - 50 ML IVPB ONE (15:44)
--- NOTE | 2019-11-19 16:14 | HP ---
CHIEF COMPLAINT: Left knee pain HISTORY OF PRESENT ILLNESS: 74 year-old female with a PMH significant for HTN, CAD, asthma/COPD, GERD, d iverticulitis, pancreatitis, vertigo, and osteoarthritis s/p left total knee replacement on 11/[address] Lara. Recent Travel: No PAST MEDICAL HISTORY: Hypertension Coronary artery disease s/p IA 1988 Asthma COPD GERD Diverticulitis Osteoarthritis Pancreatitis Vertigo PAST SURGICAL HISTORY: Carpal tunnel release Cholecystectomy Knee surgery Lumbar laminectomy Family history: mother with cancer, CAD; father with brain tumor; brother with testicular cancer Social History: single Smoking: former, quit 1988 Alcohol: no Drugs: no Allergies milk Allergy (Verified 11/05/19 13:15) Difficulty Breathing Sulfa (Sulfonamide Antibiotics) Allergy (Verified 11/05/19 13:15) Swelling HOME MEDICATIONS: Home Medications Medication Instructions Recorded Albuterol Sulfate Inhaler - 1 puff IH PRN 03/15/18 [Ventolin HFA Inhaler -] Bifidobacterium Infantis [Align] 10.5 mg PO DAILY 03/15/18 Fluticasone Propionate 9.9 ml NS DAILY PRN 03/15/18 Loratadine [Claritin] 10 mg PO DAILY PRN 03/15/18 Losartan/Hydrochlorothiazide 1 each PO DAILY 03/15/18 [Losartan-Hctz 100-12.5 mg Tab] Meclizine HCl 12.5 mg PO PRN 03/15/18 Montelukast Na [Singulair -] 10 mg PO HS 03/15/18 Omeprazole 40 mg PO DAILY 03/15/18 Cholecalciferol (Vitamin D3) 1,000 unit PO DAILY 11/05/19 [Vitamin D3 -] REVIEW OF SYSTEMS CONSTITUTIONAL: Absent: fever, chills, diaphoresis, generalized weakness, malaise, loss of appetite, weight change HEENT: Absent: rhinorrhea, nasal congestion, throat pain, throat swelling, difficulty swallowing, mouth swelling, ear pain, eye pain, visual changes CARDIOVASCULAR: Absent: chest pain, syncope, palpitations, irregular heart rate, lightheadedness, peripheral edema RESPIRATORY: Absent: cough, shortness of breath, dyspnea with exertion, orthopnea, wheezing, stridor, hemoptysis GASTROINTESTINAL: Absent: abdominal pain, abdominal distension, nausea, vomiting, diarrhea, constipation, melena, hematochezia GENITOURINARY: Absent: dysuria, frequency, urgency, hesitancy, hematuria, flank pain, genital pain MUSCULOSKELETAL: Absent: myalgia, arthralgia, joint swelling, back pain, neck pain SKIN: Absent: rash, itching, pallor HEMATOLOGIC/IMMUNOLOGIC: Absent: easy bleeding, easy bruising, lymphadenopathy, frequent infections ENDOCRINE: Absent: unexplained weight gain, unexplained weight loss, heat intolerance, cold intolerance NEUROLOGIC: Absent: headache, focal weakness or paresthesias, dizziness, unsteady gait, seizure, mental status changes, bladder or bowel incontinence PSYCHIATRIC: Absent: anxiety, depression, suicidal or homicidal ideation, hallucinations. PHYSICAL EXAMINATION Vital Signs - 24 hr 11/19/19 11/19/19 11/19/19 09:21 14:03 14:08 Temperature 98.3 F 97.7 F Pulse Rate 96 H 77 78 Respiratory 18 15 14 Rate Blood Pressure 159/95 120/57 L 118/65 O2 Sat by Pulse 97 99 99 Oximetry (%) 11/19/19 11/19/19 11/19/19 14:13 14:18 14:23 Temperature Pulse Rate 76 72 78 Respiratory 14 13 15 Rate Blood Pressure 117/69 118/90 124/59 L O2 Sat by Pulse 99 100 98 Oximetry (%) 11/19/19 11/19/19 11/19/19 14:38 14:53 15:08 Temperature Pulse Rate 71 69 70 Respiratory 16 12 14 Rate Blood Pressure 123/69 133/62 140/60 O2 Sat by Pulse 98 100 100 Oximetry (%) 11/19/19 11/19/19 15:20 16:02 Temperature 97.7 F 97.6 F Pulse Rate 70 70 Respiratory 14 14 Rate Blood Pressure 140/60 140/60 O2 Sat by Pulse 100 100 Oximetry (%) GENERAL: Awake, alert, and fully oriented, in no acute distress. LUNGS: Breath sounds equal, clear to auscultation bilaterally. HEART: Regular rate and rhythm, normal S1 and S2 ABDOMEN: Soft, nontender, not distendedaly. UPPER EXTREMITIES: 2+ pulses, warm, well-perfused. No cyanosis. No clubbing. No peripheral edema. LLE: Surgical dressings c/d/i; +flex/extend toes, sensory intact, hemovac drain NEUROLOGICAL: Cranial nerves II-XII intact. Normal speech Pre op BUN 18 Cr 0.66 Hgb 13.2 Intra op Ancef 1g x 1 EBL 20ccs LR 1L ASSESSMENT/PLAN: 74 year-old female with a PMH significant for HTN, CAD, asthma/COPD, GERD, diverticulitis, pancreatitis, vertigo, and osteoarthritis s/p left total knee replacement on 11/[address] Lara. Left total knee replacement --POD #0 --perioperative antibiotics per surgery --pain management per surgery --ASA 81mg BID --protonix --bowel regimen --incentive spirometry --Hemovac drain, monitor output Hypertension --continue losartan CAD --on ASA, not on statin therapy Asthma/COPD --continue albuterol INH PRN GERD --protonix FEN Fluids: LR@125mL/hr Electrolytes: replete as indicated Nutrition: regular diet DVT prophylaxis: OOB, ambulation, SCDs, TEDs, ASA 81mg BID Physical therapy Dispo: continues to require inpatient care. Full code. Family Medical History Family History: As Documented Visit type - Medication Review Med list reviewed for High Risk Meds patients 65 and older: Yes - Emergency Visit Emergency Visit: No - New Patient This patient is new to me today: Yes Date on this admission: 11/21/19 - Critical Care Critical Care patient: No
--- NOTE | 2019-11-19 16:55 | OP ---
DATE OF OPERATION: 11/19/2019 SURGEON: Aydin Lara MD. BOILER/CHILLER TECHNICIAN: CARISSA Patterson PREOPERATIVE DIAGNOSIS: Tricompartmental osteoarthritis, left knee. POSTOPERATIVE DIAGNOSIS: Tricompartmental osteoarthritis, left knee. OPERATION PERFORMED: Left posterior stabilized total knee arthroplasty (cement [place]). ANESTHESIA: Vin Thomas MD. Conscious sedation with spinal anesthesia and peripheral nerve block. TOURNIQUET TIME: One hour and 10 minutes. ANTIBIOTICS GIVEN: Ancef 2 g, 1 g vancomycin. Ancef 1 g given at the end of the procedure. OPERATION DETAILS: The patient was correctly identified and brought to the operating room. The left lower extremity was prepped and draped in the routine manner with a Betadine scrub solution, wiped off with alcohol, and DuraPrep applied. A time-out was called. Imaging was available for intraoperative evaluation. Preoperative evaluation revealed the presence of a neutral alignment knee with a fixed flexion deformity of about 10 degrees. Severe crepitus and range of movement on the table was from 10 to 60 degrees. The left lower extremity was prepped and free draped in a routine manner. Betadine scrub solution with alcohol prep and tourniquet applied. An incision was made with the knee in flexion at about 40 degrees. The skin and subcutaneous tissue was opened. We utilized the subvastus approach, that is, the epimysium of the muscle of vastus medialis was lifted off the muscle. The soft tissue was dissected off the tibia with the Bovie. It was clearly apparent at that point that the medial collateral ligament was deficient for such reason which appeared to be unclear. She had had previous surgery to this knee and sutures were noted in the soft tissue along the medial side as well as along the tibial tubercle. The incision was curved in posteriorly and the vastus medialis was dissected off the intramuscular septum and the limb of the distal part of the incision was carried on into this exact alignment plane lifting the entire vastus medialis off the femur. With digital palpation the plane was created between the femoral bone and the undersurface of the vastus musculature. A bone tamp was then placed in this area and then the suprapatellar pouch excised. This gave easy access by flexing the knee with external rotation planted to the tibia to the knee which revealed a presence of severely marked tricompartmental osteoarthritis with marked osteophytosis. All osteophytes were resected. Multiple loose bodies were removed. It appeared as if the cruciate ligaments were deficient. The intercondylar notch was contracted with osteophytes. A short bone was placed in the intercondylar notch and into the back of the tibia leaving the tibia forward. It was then clearly apparent that the entire medial soft tissue envelope was deficient. Using the BeVocal system, the tibia was cut that the tibia was neutral to the alignment of the bone and this was sized to a size 4. The femur entry hole was just above the intercondylar notch. Once the starter drill was inserted, the bone bed was aspirated for fat and the sword applied with the distal cutting block. This was set at 4 degrees of valgus and 10 mm was resected off the distal femoral bone bed. Once this had been performed the knee was straightened and the alignment was verified. This clearly revealed the presence of excellent alignment and mechanical access was reformulated. The appropiate jigs were then set after measurements of the femoral condyle and for a size 3 femur. The size 3 femur cuts were made with the jig cutting the anterior, posterior, and chamfer cuts being made all in one block. The block for the posterior stabilized element was then cut into the femoral bone bed and the bone removed. The femoral trialing was a size 3, this was seated perfectly. The sizing of the tibia size 4 with a size 13 mm polyethylene liner gave the best tension on both the medial and lateral sides without disturbing the extension gap. At that point once this had been performed and we were happy with the sizing, we prepared the tibia and the patella. The patella was cut from the patellar ligament to quadriceps tendon and a 27-mm patellar button inserted. This brought about an excellent realignment in terms of coronal as well as sagittal bones in flexion. A Salmon retractor was placed in the joint space medially revealing good tension, albeit not perfect because of the deficient medial collateral ligament. The implants were then sized exactly in the above mentioned and a femur size 3, tibia size 4 with a TS polyethylene component size 13 and the patellar button size 27. All components were cemented after thorough preparation of the bone bed with pulse lavage and aspiration of the bone bed. Once the cement had cured, extraneous cement was removed. Patellar tracking revealed a negative thumb test. The stability in the coronal sagittal plane was excellent laxity on the medial side. Once we had verified and thorough lavage was performed of all extraneous loose bodies and components removed, the tissue was closed as follows. The medial retinaculum with No. 1 Vicryl, the track of the patella was then rechecked and found to be uncomplicated; a 1/8 inch Hemovac drain was then inserted into the medial vastus bed, closure of the subcutaneous tissue with 1 and 2-0 Vicryl, and skin with 3-0 Monocryl with Steri-Strips. The operation went extremely well with no complications. Postoperative x-rays revealed excellent alignment in both coronal and sagittal planes. MD DEXTER Shafer/[id number]
[2019-11-19] MEDS: KETOROLAC TROMETHAMINE 30 MG/1 ML VIAL IVPUSH PRN (18:10)
[2019-11-19] MEDS: ACETAMINOPHEN 325 MG TABLET (FP) PO SCH (20:39)
[2019-11-19] MEDS: CEFAZOLIN 2 GM/D5W 2 GM/50 ML ML IVPB SCH (20:39)
[2019-11-19] MEDS: traMADol HCL 50 MG TABLET PO PRN (20:40)
[2019-11-19] MEDS: ASPIRIN 81 MG CHEWABLE TABLETS PO SCH (21:56)
[2019-11-19] MEDS: MONTELUKAST NA 10 MG TABLET PO SCH (21:57)
[2019-11-19] MEDS: SENNOSIDES/DOCUSATE COMBO (SENNA PLUS) TABLET (UD) PO SCH (21:57)
[2019-11-19] MEDS ORDERED: oxyCODONE HCL 10 MG SUSTAINED ACTING TABLET PO SCH (22:00)
[2019-11-20] MEDS: traMADol HCL 50 MG TABLET PO PRN (01:42)
[2019-11-20] MEDS: KETOROLAC TROMETHAMINE 30 MG/1 ML VIAL IVPUSH PRN ×2 (01:43→17:31)
[2019-11-20] MEDS: ACETAMINOPHEN 325 MG TABLET (FP) PO SCH (04:00)
[2019-11-20] MEDS: CEFAZOLIN 2 GM/D5W 2 GM/50 ML ML IVPB SCH (04:16)
--- NOTE | 2019-11-20 07:40 | PN ---
Progress Note (short form) - Note Progress Note: POD 1, s/p L TKR Pt seen and examined. Reports some pain despite pain regimen. Had significant n/v yesterday afternoon, believes it is due to the pain medications. Has been oob standing, reports "I still cannot walk, I dont have good feeling in my foot". Has had minimal po intake. Denies cp/sob. Vital Signs Temp 98.9 F 11/20/19 06:00 Pulse 94 H 11/20/19 06:00 Resp 18 11/20/19 06:00 BP 106/53 L 11/20/19 06:00 Pulse Ox 94 L 11/20/19 06:00 Intake & Output 11/19/19 11/19/19 11/20/19 11:59 23:59 11:59 Intake Total 1000 500 Output Total 742 80 Balance 1000 -242 -80 Weight 195 lb Intake: IV 1000 200 Oral 300 Output: Drainage 142 80 Left Knee 140 80 Urine 600 Void 600 Other: Voiding Method Bedpan Bedpan # Unmeasured Voids Void 1 Height 5 ft 4 in Body Mass Index (BMI) 33.5 Weight Measurement Method Standing Scale CBC, BMP 11/21/19 07:34 11/21/19 07:34 Gen: awake, alert, nad ResP: Unlabored on RA Ext: LLE with dressing c/d/i, compartments soft with minimal edema, drain in place with scant drainage in reservoir. RLE 5/5 df/pf/ehl/fhl, silt. LLE wih drop foot noted (baseline per pt) 3+/5 df, 4+/5pf, 3+/5 ehl, 4+/5 fhl, sensation diminished to mid calf (block likely still in effect) A/P: 74 y/o F w/ h/o OA now POD 1, s/p L TKR afebrile, vss drain output 80ml overnight labs reviewed, wnl - Pain control oxycontin d/c'ed, ultram 50 mg q4hrs prn, tylenol 1g q6hrs prn, morphine 2mg q3hrs btp -DVT PPx: -Chemical: ASA 81 mg po BID x 6 weeks -Mechanical: MARCY's, SCD's -Incentive Spirometry. -PT/OT/Rehab, OOB. -WBAT LLE -f/u drain output d/w attending Dr Lara
[2019-11-20] MEDS ORDERED: MORPHINE SULFATE 2 MG/ML VIAL IVPUSH PRN (07:43)
[2019-11-20] MEDS ORDERED: ACETAMINOPHEN 1000 MG/100 ML VIAL (NON FORMULARY) IVPB SCH (07:45)
[2019-11-20 08:19] LABS: CALCIUM 7.8 mg/dl (8.5-10); CREATININE 0.7 mg/dl (0.55-1.3); MAGNESIUM 1.3 mg/dL (1.8-2.4)
[2019-11-20 08:26] LABS: HEMATOCRIT 30.9 % (32.4-45.2); HEMOGLOBIN 10.3 GM/dl (10.7-15.3); MCH 28.3 pg (25.7-33.7); MCHC 33.2 g/dl (32.0-36.0); MEAN CELL VOLUME 85.2 fl (80-96); MEAN PLT VOLUME 8.5 fl (7.5-11.1); PLATELET COUNT 221 K/MM3 (134-434); RBC 3.62 M/mm3 (3.60-5.2); RDW 12.4 % (11.6-15.6); WHITE BLOOD COUNT 9.7 K/mm3 (4.0-10.8)
[2019-11-20] MEDS ORDERED: LACTOBACILLUS ACIDOPHILUS 1 TABLET PO SCH (10:00)
[2019-11-20] MEDS ORDERED: PANTOPRAZOLE 40 MG TABLET PO SCH (10:00)
[2019-11-20] MEDS: LOSARTAN POTASSIUM 50 MG TABLET PO SCH (10:10)
[2019-11-20] MEDS: ASPIRIN 81 MG CHEWABLE TABLETS PO SCH ×2 (10:10→22:24)
[2019-11-20] MEDS: SENNOSIDES/DOCUSATE COMBO (SENNA PLUS) TABLET (UD) PO SCH ×2 (10:11→22:24)
[2019-11-20] MEDS: MULTIVITAMINS (DAILY MVI) TABLET (FP) PO SCH (10:11)
[2019-11-20] MEDS: PANTOPRAZOLE 40 MG TABLET PO SCH (10:11)
[2019-11-20] MEDS ORDERED: MAGNESIUM SULF 50% (8.12 MEQ/2 ML-1 GM VIAL) IVPB ONE (10:29)
[2019-11-20] MEDS ORDERED: MAGNESIUM SULFATE IN WATER 2 GM/50 ML IVPB IVPB ONE (10:45)
[2019-11-20] MEDS: POTASSIUM CHLORIDE TABS 20 MEQ TABLET.ER (FP) PO SCH ×3 (11:05→22:24)
--- NOTE | 2019-11-20 11:08 | PN ---
Progress Note (short form) - Note Progress Note: Post op day#1.S/P Left total knee replacement under spinal with adductor canal and selective tibial N block uneventful.Patient stable and c/o little pain for which she is on medication.No any anesthesia related problem.Patient Dc from the anesthesia care.
--- NOTE | 2019-11-20 15:37 | PN ---
Physical Exam: SUBJECTIVE: Patient seen and examined OBJECTIVE: Vital Signs Period Temp Pulse Resp BP Sys/Uribe Pulse Ox Last 24 Hr 97.5 F-98.9 F 70-95 14-18 106-145/49-78 86-100 GENERAL: Awake, alert, and fully oriented, in no acute distress. LUNGS: Breath sounds equal, clear to auscultation bilaterally. HEART: Regular rate and rhythm, normal S1 and S2 ABDOMEN: Soft, nontender, not distendedaly. UPPER EXTREMITIES: 2+ pulses, warm, well-perfused. No cyanosis. No clubbing. No peripheral edema. LLE: Surgical dressings c/d/i; +flex/extend toes, sensory intact, hemovac drain NEUROLOGICAL: Cranial nerves II-XII intact. Normal speech Laboratory Results - last 24 hr 11/20/19 11/20/19 07:42 07:42 WBC 9.7 RBC 3.62 Hgb 10.3 L Hct 30.9 L MCV 85.2 MCH 28.3 MCHC 33.2 RDW 12.4 Plt Count 221 MPV 8.5 Sodium 137 Potassium 3.0 L Chloride 103 Carbon Dioxide 24 Anion Gap 10 BUN 15.0 Creatinine 0.7 Est GFR (CKD-EPI)AfAm 99.62 Est GFR (CKD-EPI)NonAf 85.95 Random Glucose 136 H Calcium 7.8 L Magnesium 1.3 L Active Medications Generic Name Dose Route Start Last Admin Trade Name Freq PRN Reason Stop Dose Admin Acetaminophen 1,000 mg 11/21/19 10:32 Tylenol - PO Q6H PRN PAIN LEVEL 1 - 3 Acetaminophen 1,000 mg 11/20/19 16:30 Ofirmev Injection - IVPB 11/21/19 10:31 Q6H FREDDY Al Hydroxide/Mg Hydroxide 30 ml 11/19/19 14:03 Mylanta Oral Suspension - PO Q4H PRN DYSPEPSIA Albuterol Sulfate 1 puff 11/19/19 14:15 Ventolin Hfa Inhaler - IH PRN FREDDY Aspirin 81 mg 11/19/19 22:00 11/20/19 10:10 Asa - PO 81 mg BID FREDDY Administration Fluticasone Propionate 2 spray 11/19/19 14:07 Flonase - NS DAILY PRN NASAL CONGESTION Ketorolac Tromethamine 30 mg 11/19/19 18:01 11/20/19 01:43 Toradol Injection - IVPUSH 30 mg Q8H PRN Administration PAIN SCALE 4-6 Loratadine 10 mg 11/19/19 15:34 Claritin - PO DAILY PRN NASAL CONGESTION Losartan Potassium 100 mg 11/20/19 10:00 11/20/19 10:10 Cozaar - PO 100 mg DAILY FREDDY Administration Magnesium Hydroxide 30 ml 11/19/19 14:03 Milk Of Magnesia - PO PRN PRN CONSTIPATION Meclizine HCl 12.5 mg 11/19/19 14:15 Antivert - PO PRN FREDDY Montelukast Sodium 10 mg 11/19/19 22:00 11/19/19 21:57 Singulair - PO 10 mg HS FREDDY Administration Morphine Sulfate 2 mg 11/20/19 07:43 Morphine Sulfate IVPUSH Q4H PRN PAIN LEVEL 7 - 10 Multivitamins/Minerals/Vitamin C 1 tab 11/20/19 10:00 11/20/19 10:11 Tab-A-Vit - PO 1 tab DAILY FREDDY Administration Non-Formulary Medication 10.5 mg 11/20/19 10:00 Bifidobacterium Infantis [Align] PO DAILY FREDDY Ondansetron HCl 4 mg 11/19/19 14:03 11/20/19 08:17 Zofran Injection IVPUSH 4 mg Q6H PRN Administration NAUSEA Ondansetron HCl 4 mg 11/19/19 14:16 11/19/19 15:30 Zofran Injection IVPUSH 4 mg Q6H PRN Administration NAUSEA AND/OR VOMITING Pantoprazole Sodium 40 mg 11/20/19 10:00 11/20/19 10:11 Protonix - PO 40 mg DAILY FREDDY Administration Potassium Chloride 40 meq 11/20/19 10:30 11/20/19 11:05 K-Dur - PO 11/20/19 22:31 40 meq Q6H FREDDY Administration Promethazine HCl 12.5 mg 11/19/19 14:16 11/19/19 18:10 Phenergan Injection - IVPUSH 12.5 mg Q6H PRN Administration NAUSEA-FOR RESCUE AFTER 15 MIN Senna/Docusate Sodium 2 tablet 11/19/19 22:00 11/20/19 10:11 Pericolace - PO 2 tablet BID FREDDY Administration Pre op BUN 18 Cr 0.66 Hgb 13.2 Intra op Ancef 1g x 1 EBL 20ccs LR 1L ASSESSMENT/PLAN: 74 year-old female with a PMH significant for HTN, CAD, asthma/COPD, GERD, diverticulitis, pancreatitis, vertigo, and osteoarthritis s/p left total knee replacement on 11/[address] Lara. Left total knee replacement --POD #1 --perioperative antibiotics complete --pain management per surgery, well-controlled --ASA 81mg BID --protonix --bowel regimen --incentive spirometry --Hemovac drain, monitor output Hypertension --continue losartan CAD --on ASA, not on statin therapy Asthma/COPD --continue albuterol INH PRN GERD --protonix FEN Fluids: PO intake adequate Electrolytes: replete as indicated Nutrition: regular diet DVT prophylaxis: OOB, ambulation, SCDs, TEDs, ASA 81mg BID Physical therapy Dispo: continues to require inpatient care. Full code. Visit type - Emergency Visit Emergency Visit: No - New Patient This patient is new to me today: No - Critical Care Critical Care patient: No - Medication Review Med list reviewed for High Risk Meds patients 65 and older: Yes
[2019-11-20] MEDS: ACETAMINOPHEN 1000 MG/100 ML VIAL (NON FORMULARY) IVPB SCH ×2 (17:03→22:24)
[2019-11-20] MEDS: MONTELUKAST NA 10 MG TABLET PO SCH (22:24)
[2019-11-21] MEDS: ACETAMINOPHEN 1000 MG/100 ML VIAL (NON FORMULARY) IVPB SCH (05:18)
--- NOTE | 2019-11-21 06:45 | DS ---
Physical Exam: SUBJECTIVE: Patient seen and examined OBJECTIVE: Vital Signs Period Temp Pulse Resp BP Sys/Uribe Pulse Ox Last 24 Hr 97.8 F-98.6 F 82-91 16-18 109-125/48-78 94-98 PHYSICAL EXAM GENERAL: Awake, alert, and fully oriented, in no acute distress. LUNGS: Breath sounds equal, clear to auscultation bilaterally. HEART: Regular rate and rhythm, normal S1 and S2 ABDOMEN: Soft, nontender, not distendedaly. UPPER EXTREMITIES: 2+ pulses, warm, well-perfused. No cyanosis. No clubbing. No peripheral edema. LLE: Surgical dressings c/d/i; +flex/extend toes, sensory intact NEUROLOGICAL: Cranial nerves II-XII intact. Normal speech LABS Laboratory Results - last 24 hr 11/20/19 11/20/19 07:42 07:42 WBC 9.7 RBC 3.62 Hgb 10.3 L Hct 30.9 L MCV 85.2 MCH 28.3 MCHC 33.2 RDW 12.4 Plt Count 221 MPV 8.5 Sodium 137 Potassium 3.0 L Chloride 103 Carbon Dioxide 24 Anion Gap 10 BUN 15.0 Creatinine 0.7 Est GFR (CKD-EPI)AfAm 99.62 Est GFR (CKD-EPI)NonAf 85.95 Random Glucose 136 H Calcium 7.8 L Magnesium 1.3 L HOSPITAL COURSE: Date of Admission:11/19/19 Date of Discharge: 11/21/19 74 year-old female with a PMH significant for HTN, CAD, asthma/COPD, GERD, diverticulitis, pancreatitis, vertigo, and osteoarthritis s/p left total knee replacement on 11/[address] Lara. Left total knee replacement --perioperative antibiotics complete --pain management per surgery, well-controlled with PO meds --ASA 81mg BID x 6 weeks Hypertension --continued losartan CAD --on ASA, not on statin therapy Asthma/COPD --continued albuterol INH PRN GERD --protonix Minutes to complete discharge: 35 Discharge Summary Problems reviewed: Yes Reason For Visit: UNIL PRIMARY OSTEOARTHRITIS LEFT KNEE Condition: Improved - Instructions Diet, Activity, Other Instructions: Dr. Lara Discharge Instructions for Knee Replacement Post Operative Instructions Physical activity Physical Therapist will come to your home for the first 5 days. You will be set up with outpatient PT at your first post-operative visit. Use assistive devices for ambulation at all times. Weight bearing as tolerated on your surgical side. Do not put pillow under knee. May put pillow under heel. Wound care Leave your surgical dressing in place. Do not change the dressing until seen by your surgeon in the office. No baths or showers. Do not submerge your incision. Do not apply any ointments or lotions to your incision. Please call the office if your dressing is soiled/dirty or is falling off. Apply Graduated Compression Stockings (TEDS) to both lower extremities - remove daily for hygiene ONLY. Diet There are no dietary restrictions. Eat healthy, high-fiber foods. Drink 6 to 8 glasses of liquid each day. This will assist in keeping your bowels are regular. Pain management Any pain prescription medication ordered should be taken as prescribed for moderate to severe pain. Do not take additional Tylenol while taking Percocet. Take Aspirin 81 mg two times a day for a total of 6 weeks to prevent blood clots. Call Dr. Lara for any of the following: Severe pain not relieved by medication Fever of 101 or higher Excessive bleeding or drainage on dressing Inability to urinate If you experience chest pain or shortness of breath, please seek emergency care immediately. Please call the office at to confirm your post-op appointment for the week following surgery. Referrals: Aydin Lara MD [Staff Physician] - Disposition: HOME - Home Medications Comprehensive Discharge Medication List: Ambulatory Orders Albuterol Sulfate Inhaler - [Ventolin HFA Inhaler -] 1 puff IH PRN 03/15/18 Bifidobacterium Infantis [Align] 10.5 mg PO DAILY 03/15/18 Fluticasone Propionate 9.9 ml NS DAILY PRN 03/15/18 Loratadine [Claritin] 10 mg PO DAILY PRN 03/15/18 Losartan/Hydrochlorothiazide [Losartan-Hctz 100-12.5 mg Tab] 1 each PO DAILY 03/15/18 Meclizine HCl 12.5 mg PO PRN 03/15/18 Montelukast Na [Singulair -] 10 mg PO HS 03/15/18 Omeprazole 40 mg PO DAILY 03/15/18 Cholecalciferol (Vitamin D3) [Vitamin D3 -] 1,000 unit PO DAILY 09/30/20 Prescription Drug Monitoring Program (I-STOP) results: I-STOP not reviewed This patient is new to me today: No Emergency Visit: No Critical Care patient: No - Discharge Referral Referred to [facility] Med P.C.: No
[2019-11-21 08:16] LABS: HEMATOCRIT 30.8 % (32.4-45.2); HEMOGLOBIN 10.2 GM/dl (10.7-15.3); MCH 28.4 pg (25.7-33.7); MCHC 33.3 g/dl (32.0-36.0); MEAN CELL VOLUME 85.4 fl (80-96); MEAN PLT VOLUME 8.6 fl (7.5-11.1); PLATELET COUNT 243 K/MM3 (134-434); RDW 12.6 % (11.6-15.6); WHITE BLOOD COUNT 12.6 K/mm3 (4.0-10.8)
[2019-11-21 08:53] LABS: BILIRUBIN,TOTAL 0.7 mg/dl (0.2-1); CALCIUM 8.1 mg/dl (8.5-10); MAGNESIUM 2.1 mg/dL (1.8-2.4); TOT PROT 5.5 g/dl (6.4-8.2)
[2019-11-21] MEDS: LOSARTAN POTASSIUM 50 MG TABLET PO SCH (09:23)
[2019-11-21] MEDS: ASPIRIN 81 MG CHEWABLE TABLETS PO SCH (09:23)
[2019-11-21] MEDS: MULTIVITAMINS (DAILY MVI) TABLET (FP) PO SCH (09:24)
[2019-11-21] MEDS: SENNOSIDES/DOCUSATE COMBO (SENNA PLUS) TABLET (UD) PO SCH (09:24)
[2019-11-21] MEDS: PANTOPRAZOLE 40 MG TABLET PO SCH (09:24)
--- NOTE | 2019-11-21 09:45 | PN ---
Progress Note (short form) - Note Progress Note: SURGERY POD 2, s/p L TKR Pt seen and examined. Pt states her pain is improved. Pt ambulating well with PT. Pt states her weakness in her Lt foot is at baseline for her drop foot. Denies cp/sob. Vital Signs Temp 98.5 F 11/21/19 05:35 Pulse 91 H 11/21/19 05:35 Resp 16 11/21/19 08:00 BP 112/48 L 11/21/19 05:35 Pulse Ox 99 11/21/19 08:00 Intake & Output 11/20/19 11/20/19 11/21/19 11:59 23:59 11:59 Intake Total 250 Output Total 150 Balance -150 250 Intake: Oral 250 Output: Drainage 150 Left Knee 150 Other: Voiding Method Bedpan Toilet Toilet # Unmeasured Voids Void 1 CBC, BMP 11/21/19 07:34 11/21/19 07:34 Gen: awake, alert, nad ResP: Unlabored on RA Ext: LLE with dressing c/d/i, compartments soft with minimal edema, drain in place with scant drainage in reservoir. RLE 5/5 df/pf/ehl/fhl, silt. LLE wih drop foot noted (baseline per pt) 3+/5 df, 4+/5pf, 3+/5 ehl, 4+/5 fhl, no num bness. A/P: 74 y/o F w/ h/o OA now POD 1, s/p L TKR afebrile, vss drain output 80ml overnight labs pending S/P L TKA R TKA POD #2 Drain removed at bedside. Pt cleared for discharge from ortho standpoint. - Pain control -DVT PPx: -Chemical: ASA 81 mg po BID x 6 weeks -Mechanical: MARCY's, SCD's -Incentive Spirometry. -PT/OT/Rehab, OOB. -WBAT LLE -f/u am labs.
[2019-11-21] MEDS ORDERED: ACETAMINOPHEN 500 MG TABLET (FP) PO PRN (10:32)
[2019-11-21 11:04] VITALS: BP 110/66; PULSE 88; TEMP 97.8
--- NOTE | 2019-11-21 19:15 | PATH ---
Surgical Pathology Report Patient Name: PRAVEEN STOKES Med. Rec. #: [id number] /Age/Gender: 1945 (Age: 74) / F Account: [id number] Location: [facility] MED-SURG Taken: 11/19/2019 Received: 11/19/2019 Reported: 11/21/2019 Physicians: Aydin Lara M.D. Specimen(s) Received LEFT KNEE BONES Clinical History Osteoarthritis left knee Final Diagnosis BONES, KNEE, LEFT, TOTAL KNEE REPLACEMENT: BONE WITH DEGENERATIVE JOINT DISEASE AND REACTIVE SYNOVIUM. Electronically Signed Mckenzie Perez M.D. Gross Description Received in formalin labeled "left knee bones" is a 10 x 10 x 4 cm aggregate of multiple portions of bone and soft tissue. The tibial plateau measures 8.5 x 5 x 1.5 cm. Areas of eburnation measuring up to 2 cm are identified. The articular surface is spain-yellow and diffusely granular. The underlying trabecular bone is yellow and hard. Engineer And Geologist sections submitted in one cassette, following decalcification. MLSZ/11/21/2019 scott/11/21/2019
== END 2019-11-21 12:26 | disposition home or self-care (01) ==
LOC: FASUSAT 08:54 → FM/S 16:01 → FASUSAT 11-21 12:26
PROVIDERS: ATTEND Nurse Practitioner Acute Care
PROC: 0SRD0M9 Replacement of Left Knee Joint with Lateral Unicondylar Synthetic Substitute, Cemented, Open Approach (ICD-10-PCS; 2019-11-19)
PROC: 0SRD0J9 Replacement of Left Knee Joint with Synthetic Substitute, Cemented, Open Approach (ICD-10-PCS; principal; 2019-11-19 11:34)
DX: M17.12 Unilateral primary osteoarthritis, left knee (principal); I10 Essential (primary) hypertension; I25.10 Atherosclerotic heart disease of native coronary artery without angina pectoris; I25.2 Old myocardial infarction; J45.909 Unspecified asthma, uncomplicated; K21.9 Gastro-esophageal reflux disease without esophagitis
CPT/HCPCS: 27447; C1776; 36415; 73560-TC-LT-FY; 80048; 80053; 83735; 85027; 88305-TC; 88311-TC; 94760; 97110-GP; 97116-GP; 97163-GP; J0131